=== PATIENT | male | born 1965 | race Caucasian/White ===

== ENCOUNTER → 2020-01-25 11:29 | Outpatient (CLI) | payer SELFPAY ==
--- NOTE | 2020-01-25 11:42 | DI.RAD.S_ITS ---
PROCEDURE: XR ANKLE LT MIN 3V INDICATIONS: rolled ankled 1 wk ago, increased pain/swelling, r/o fx TECHNIQUE: 3 views of the ankle were acquired. COMPARISON: None. FINDINGS: Bones: No fractures or dislocations. Ankle mortise is normally aligned. No suspicious bony lesions. Bipartite sesamoid bone. Tiny plantar calcaneal enthesophyte. Soft tissues: No tibiotalar joint effusion. Achilles tendon appears normal. IMPRESSION: No acute osseous abnormality. Dictated by: Tate See M.D. on 01/25/2020 at 12:22 Approved by: Tate See M.D. on 01/25/2020 at 12:24
== END ==
PROVIDERS: Referring Provider Physician Assistant; Visit Provider Physician Assistant
DX: S99.912A Unspecified injury of left ankle, initial encounter (principal); X58.XXXA Exposure to other specified factors, initial encounter
CPT/HCPCS: 73610

== ENCOUNTER 2025-05-06 09:07 | Inpatient (IN) | payer OTHER, SELFPAY ==
[2025-05-06] VITALS (77 sets, daily range): BP systolic 103–218; BP diastolic 54–115; PULSE 71–144; RESP 0–63; TEMP 36.8–37.2; O2SAT 82–100; BMI 41.3
--- NOTE | 2025-05-06 09:31 | DI.RAD.S_ITS ---
PROCEDURE: XR CHEST 1V INDICATIONS: Chest Pain TECHNIQUE: One view of the chest was acquired. COMPARISON: None. FINDINGS: Surgical changes and devices: None. Lungs and pleura: Lungs are clear. No pleural effusions or pneumothorax. Mediastinum: Mediastinal contours appear normal. Heart size is enlarged. Bones and chest wall: No suspicious bony lesions. Overlying soft tissues appear unremarkable. IMPRESSION: No acute cardiopulmonary abnormality is seen. Dictated by: Sky Lee M.D. on 05/06/2025 at 10:49 Approved by: Sky Lee M.D. on 05/06/2025 at 10:50
--- NOTE | 2025-05-06 09:31 | DI.RAD.S_ITS ---
PROCEDURE: XR KNEE LT 1TO2V INDICATIONS: knee pain TECHNIQUE: 2 views of the knee were acquired. COMPARISON: None. FINDINGS: Bones: No fractures or dislocations. No suspicious bony lesions. Tricompartmental joint space narrowing with associated osteophytosis. Subchondral cystic change without bony deformity in the medial tibiofemoral compartment. Soft tissues: Large joint effusion. No suspicious soft tissue calcifications. IMPRESSION: No acute bony abnormality with large joint effusion. Moderate to severe tricompartmental osteoarthritis. Kellgren-Abhinav Grade 2-3. Dictated by: Sky Lee M.D. on 05/06/2025 at 10:50 Approved by: Sky Lee M.D. on 05/06/2025 at 10:51
--- NOTE | 2025-05-06 09:31 | DI.RAD.S_ITS ---
PROCEDURE: XR KNEE RT 1TO2V INDICATIONS: knee pain TECHNIQUE: 2 views of the knee were acquired. COMPARISON: None. FINDINGS: Bones: No fractures or dislocations. No suspicious bony lesions. Tricompartmental joint space narrowing with associated osteophytosis. Soft tissues: Moderate joint effusion. No suspicious soft tissue calcifications. IMPRESSION: No acute bony abnormality with a moderate knee joint effusion. [id number] tricompartmental osteoarthritis. Kellgren-Abhinav Grade 2. Dictated by: Sky Lee M.D. on 05/06/2025 at 10:51 Approved by: Sky Lee M.D. on 05/06/2025 at 10:51
[2025-05-06 09:53] LABS: Add Manual Diff / Slide Review NO; Hematocrit 46.7 % (41-53); Hemoglobin 15.9 g/dL (13.5-17.5); Lymphocytes Absolute Auto 1100 /uL (1100-4500); Mean Corpuscular HGB Conc 34.2 % (30-36); Mean Corpuscular Hemoglobin 33.7 PG (26-34); Mean Corpuscular Volume 98.5 fL (80-100); Platelet Count 72 X10^3/uL (150-400)
[2025-05-06 09:57] LABS: INR 1.1 (0.9-1.3); Prothrombin Time 12.9 SECONDS (9.4-12.5)
[2025-05-06 10:00] LABS: PTT Partial Thromboplastin Tim 33 SECONDS (25.1-36.5)
--- NOTE | 2025-05-06 10:00 | PC.NURSE ---
Pt's HR between 130-145. pt denies feeling short of breath, denies CP or dizziness.
--- NOTE | 2025-05-06 10:03 | EKG_ITS ---
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
[2025-05-06 10:04] LABS: Alanine Aminotransferase 68 IU/L (<50); Albumin 4.5 g/dL (3.5-5.0); Albumin Globulin Ratio 1.3 (1.0-2.8); Alkaline Phosphatase 108 U/L (38-126); Blood Urea Nitrogen 9 mg/dL (9-20); Calcium 9.1 mg/dL (8.4-10.2); Carbon Dioxide 22 mmol/L (22-32); Chloride 105 mmol/L (98-107); Creatine Kinase 402 U/L (55-170); Estimated Glomerular Filt Rate > 60 mL/min (>60); Globulin 3.6 g/dL (1.7-4.1); Glucose 104 mg/dL (70-99); HEMOLYSIS < 15 (0-50); Lipase 74 U/L (23-300); Magnesium 1.6 mg/dL (1.6-2.3); Potassium 4.2 mmol/L (3.4-5.1); Sodium 140 mmol/L (137-145); Total Protein 8.1 g/dL (6.3-8.2)
[2025-05-06] MEDS: SODIUM CHLORIDE 0.9% 1,000 ML 1000 ML IV ×2 (10:07)
[2025-05-06 10:15] LABS: NT-proBNP (BNP-Adult 18+) 215 pg/mL (<125); Troponin I 0.013 ng/mL (0.01-0.034)
--- NOTE | 2025-05-06 10:15 | PC.NURSE ---
provider made aware of patients HR, CC, and symptoms
[2025-05-06] MEDS: METOPROLOL TARTRATE 5 MG/5 ML INJ IV ×2 (10:39→11:08)
[2025-05-06] MEDS: SUCCINYLCHOLINE 200 MG/10 ML VIAL 150 MG IV (10:41)
[2025-05-06 11:33] LABS: Ethanol (ETOH) 188 mg/dL (<10)
[2025-05-06 14:13] LABS: Appearance Urine UA CLEAR; Bilirubin Urine UA NEGATIVE (NEGATIVE); Color Urine UA YELLOW; Glucose Urine UA NEGATIVE (Negative); Ketones Urine UA NEGATIVE (NEGATIVE); Leukocyte Esterase Urine UA NEGATIVE (NEGATIVE); Nitrite Urine UA NEGATIVE (Negative); Occult Blood Urine UA TRACE-INTACT (Negative); Protein Urine UA NEGATIVE (Negative); Specific Gravity Urine UA <=1.005 (1.000-1.035); Urobilinogen Urine UA 0.2 E.U./dL (0.2); pH Urine UA 6.0 (4.5-8.0)
[2025-05-06 14:15] LABS: Ur Creatinine Normal (Normal); Ur Specific Gravity Normal (Normal); Urine MDMA Negative (Negative); Urine Methamphetamines Negative (Negative); Urine THC Negative (Negative); Urine Tricyclic Antidepressant Negative (Negative); Urine pH Normal (Normal)
[2025-05-06 14:21] LABS: Culture Indicated Urine Cult Not Indicated
[2025-05-06] MEDS: THIAMINE 500 MG in SODIUM CHLORIDE 0.9% 100 ML 420 MG IV (16:40)
[2025-05-06] MEDS: SODIUM CHLORIDE 0.9% 1,000 ML 100 ML IV (17:03)
[2025-05-06] MEDS: dexmedeTOMIDine in 0.9 % NaCL 400 MCG/100 ML PLAST..BAG 6.917 MCG IV (17:40)
[2025-05-06] MEDS: ONDANSETRON 4 MG/2 ML INJ IV (17:43)
--- NOTE | 2025-05-06 18:02 | CM.IDA ---
Addendum entered by Diana Pat 05/06/25 18:35: Patient also presents with positive toxicology with BAL of 188 upon presentation to ED, there may be additional concern for ETOH withdrawals. JACKSON Palomo Original Note: Initial DCP Assessment Note/ED AUDIOLOGY TECHNICIAN Note Patient is 60 y/o male who present to the ED due to concern for several health concerns including tachycardia, difficulty ambulating, and abdominal issues. Patient does not have a PCP and does not have insurance. This AUDIOLOGY TECHNICIAN assisted in signing patient up for state Medicaid insurance and faxed the application to [employer]. AUDIOLOGY TECHNICIAN with [facility] [employer] Octaviano Muñoz regarding patient and it is reported that Octaviano is trying to assist patient and connect him services through [facility]. It is reported that patient is living in his vehicle on [address], patient was recently evicted due to inability to work due to health issues. AUDIOLOGY TECHNICIAN enters room to meet with patient. Patient presents as A/Ox4, patient endorses he resides in his truck on [address] and stays by the park so he can utilize their bathroom, patient endorses that he showers at his tenriism. Patient has support from friend Emerald (Ph. # [phone]). Emerald provided patient with information to sign up for insurance but he was unable to do so independently. Patient states he just got a FWW and can typically ambulate 5-10 steps to the bathroom prior to getting FWW, patient endorses he manages most ADLs independently. Patient is interested in seeking sustainable prison and housing. Patient endorses he has children but he is estranged but them, he states his son resides in [place]. Patient states he is open to SNF rehab if it is recommended. AUDIOLOGY TECHNICIAN to provide patient with basic need and housing resources, [facility] [employer] and [facility] to follow up with patient. AUDIOLOGY TECHNICIAN informs Octaviano Muñoz of patient's admission to the hospital. patient to be admitted due to concern for Afib RVR. Plan: DCP to f/u with plan of care, patient would benefit from established PCP for outpatient f/u and support from [facility]FC to seek housing. JACKSON Palomo Discharge Planning/Care Management CM Discharge Assessment Start: 05/06/25 15:18 Freq: Status: Active Protocol: Document 05/06/25 16:42 LN (Rec: 05/06/25 16:52 LN [id number]) Discharge Planning Assessment Assigned Discharge JACKSON Ortiz Copy Center Operator Provider No PCP at this time Insurance Comment AUDIOLOGY TECHNICIAN submitted application for Medicaid application today Advance Directives? No Advance Directives No on File History Provided By Patient Has Patient been No admitted in last 30 days? Prior Living Homeless Arrangements Comment Patient is residing in his truck Household Members none Type of Drives own vehicle transporation used prior to admit Independent with ADL Yes 's Is patient alert and Yes oriented? DME Already Rented / FWW / Walker Owned Comment Patient is open to SNF rehab if it is recommended.
--- NOTE | 2025-05-06 18:21 | PC.NURSE ---
pt with complete linen change for bed. Pt with noticeabkle tremors, photosensitive and agitated,. Pt stating he is having a headache and feels worse than he did when he first arrived
--- NOTE | 2025-05-06 18:44 | ED.ABDPAIN ---
HPI - Abdominal Pain General Chief Complaint: Abdominal Pain Stated Complaint: can't walk . Time Seen by Provider: 05/06/25 10:17 Source: patient Mode of arrival: other History of Present Illness HPI narrative: This 60 yo male who is on the [address] homeless and lives out of car, presents with abdominal pain and bilateral knee pain after fall and rapid heartbeat. Slightly short of breath. Denies known history of a-fib. Claims drinks beer every other day, Family history negative Patient does not smoke currently. Related Data Home Medications ?Medication ?Instructions ?Recorded ?Confirmed No Known Home Medications 01/25/20 01/25/20 Allergies Allergy/AdvReac Type Severity Reaction Status Date / Time No Known Drug Allergies Allergy Unverified 05/06/25 09:25 Review of Systems Review of Systems ROS Unobtainable: All systems reviewed & are unremarkable except as noted in HPI and below Constitutional Comments: Malaise secondary to abdominal pain and shortness of breath Eyes Eyes: Reports system reviewed and no additional complaints, except as documented Cardiovascular Comments: Rapid irregularly irregular rhythm Respiratory Comments: short of breath slightly. no history of asthma. Gastrointestinal Comments: Epigastric pain , nausea Musculoskeletal Comments: Bilaterally tender anterior knees , slightly guarded ROM, no clear drawer sign.NROM of ankles and feet Neurologic Comments: Oriented times 3, slight trouble focusing. Patient History Medical History (Updated 05/06/25 @ 18:43 by Rose Loyola MD) Left ankle injury Social History household members: none Smoking Status: Former smoker Exam Initial Vital Signs Initial Vital Signs: Vital Signs Temperature 98.2 F 05/06/25 09:25 Pulse Rate 144 H 05/06/25 09:25 Respiratory Rate 22 05/06/25 09:25 Blood Pressure 176/100 H 05/06/25 09:25 Pulse Oximetry 93 05/06/25 09:25 Oxygen Delivery Method Room Air 05/06/25 09:25 Const General: cooperative and other (Slightly disheveled obese male who is slightly anxious and tachypneic ) HENMT Head: atraumatic Mouth: oral mucosae normal and tongue normal Eyes Pupils: PERRL EOM: EOM intact bilaterally Neck Neck: full ROM Chest Chest: normal inspection of the chest Resp Other: slight tachypnea, no rales or wheezes. Cardio Rate: tachycardic Rhythm: abnormal rhythm irregularly irregular GI Inspection: normal to inspection Palpation: soft Back/Spine/Pelvis Back: normal to inspection Neuro General: patient alert Cranial Nerves: CN's II-XI intact bilaterally Extrem Other: No marked tremulousness. Psych Appearance: other (anxious) Scores CHADS-VASc Congestive heart failure: yes Hypertension: yes Age 75 years or older: no Diabetes mellitus: no Stroke, TIA, or TE: no Vascular disease: no Age 65 to 74 years: no Sex category (female): Male CHADS-VASc Score: 2 HEART Score Heart Score history: Slightly Suspicious Heart Score EKG: Significant ST depression Heart Score Age: 45-64 years old Heart Score risk factors: 1-2 risk factors Heart Score troponin: < or = to normal limit Heart Score Total: 4 Course Orders Ordered: ED Orders 05/06/25 10:57 Consult to GREEN BUILDING ARCHITECT - Manager New Product Stat 05/06/25 11:10 Ethanol (ETOH) Stat 05/06/25 13:45 Urinalysis and Microscopic Stat Urine Drug Screen, Rapid Stat Acetaminophen (Acetaminophen 325 Mg Tablet) 650 mg PO Q6H PRN PRN Reason: Fever/Mild Pain (1-3) Apixaban (Apixaban 5 Mg Tablet) 5 mg PO BID LEN Chlordiazepoxide HCl (Chlordiazepoxide 25 Mg Capsule) 100 mg PO Q6H LEN Last Admin: 05/06/25 18:30 Dose: 100 mg Documented By: PAULINE Diltiazem HCl 125 mg/ Sodium (Chloride) 125 mls @ 5 mls/hr IV TITRATE LEN; Protocol Last Titration: 05/06/25 13:45 Dose: 15 mg/hr, 15 mls/hr Documented By: Titration: 05/06/25 12:24 Dose: 10 mg/hr, 10 mls/hr Documented By: Admin: 05/06/25 12:07 Dose: 5 mg/hr, 5 mls/hr Documented By: TRISHA Sodium Chloride (Normal Saline 0.9%) 1,000 mls @ 100 mls/hr IV CONT LEN Last Admin: 05/06/25 17:03 Dose: 100 mls/hr Documented By: TRISHA dexmedeTOMIDine in 0.9 % NaCL (Precedex) 400 mcg in 100 mls @ 6.917 mls/hr IV PROTOCOL LEN; Protocol Last Admin: 05/06/25 17:40 Dose: 0.2 mcg/kg/hr, 6.917 mls/hr Documented By: TRISHA Thiamine HCl 500 mg/ Sodium (Chloride) 105 mls @ 420 mls/hr IV Q8H [facility] Stop: 05/09/25 15:59 Last Infusion: 05/06/25 17:00 Dose: Infused Documented By: Admin: 05/06/25 16:40 Dose: 420 mls/hr Documented By: TRISHA Lorazepam (Lorazepam 2 Mg/Ml Inj) 0 mg IV CIWAPRN PRN; Protocol PRN Reason: Alcohol Withdrawal Last Admin: 05/06/25 18:18 Dose: 2 mg Documented By: PAULINE Lorazepam (Lorazepam 1 Mg Tablet) 0 mg PO CIWAPRN PRN; Protocol PRN Reason: Alcohol Withdrawal Multivitamins (Multivitamin 1 Tablet) 1 tab PO DAILY [facility] Naloxone HCl (Naloxone 0.4 Mg/Ml Vial) 0.2 mg IV Q2MIN PRN PRN Reason: Opiate Reversal Ondansetron HCl (Ondansetron 4 Mg/2 Ml Inj) 4 mg IV Q6HR PRN PRN Reason: Nausea And Vomiting Last Admin: 05/06/25 17:43 Dose: 4 mg Documented By: TRISHA Oxycodone HCl (Oxycodone Ir 5 Mg Tablet) 5 mg PO Q3H PRN PRN Reason: Pain, Moderate (4-6) Pantoprazole Sodium (Pantoprazole Dr 40 Mg Tablet) 40 mg PO 0700 [facility] Phenobarbital (Phenobarbital 65 Mg/Ml Vial) 130 mg IV Q4H [facility] Stop: 05/09/25 21:59 Discontinued Medications Aspirin (Aspirin 81 Mg Chew Tab) 324 mg PO NOW ONE Stop: 05/06/25 09:32 Last Admin: 05/06/25 09:42 Dose: Not Given Documented By: PAULINE Diltiazem HCl (Diltiazem 25 Mg/5 Ml Sdv) 10 mg IV NOW ONE Stop: 05/06/25 11:21 Last Admin: 05/06/25 11:33 Dose: 10 mg Documented By: PAULINE Hydromorphone HCl (Hydromorphone Hcl 0.5 Mg/0.5 Ml Syringe) 0.5 mg IV NOW ONE Stop: 05/06/25 10:37 Last Admin: 05/06/25 12:22 Dose: 0.5 mg Documented By: TRISHA Sodium Chloride (Normal Saline 0.9%) 1,000 mls @ 1,000 mls/hr IV BOLUS ONE Stop: 05/06/25 10:30 Last Infusion: 05/06/25 10:45 Dose: Infused Documented By: Admin: 05/06/25 10:07 Dose: 1,000 mls/hr Documented By: PAULINE Sodium Chloride (Normal Saline 0.9%) 1,000 mls @ 1,000 mls/hr IV BOLUS ONE Stop: 05/06/25 10:33 Last Infusion: 05/06/25 10:45 Dose: Infused Documented By: Admin: 05/06/25 10:07 Dose: 1,000 mls/hr Documented By: PAULINE Metoprolol Tartrate (Metoprolol Tartrate 5 Mg/5 Ml Inj) 5 mg IV NOW ONE Stop: 05/06/25 10:37 Last Admin: 05/06/25 10:39 Dose: 5 mg Documented By: PAULINE Metoprolol Tartrate (Metoprolol Tartrate 5 Mg/5 Ml Inj) 5 mg IV NOW ONE Stop: 05/06/25 11:00 Last Admin: 05/06/25 11:08 Dose: 5 mg Documented By: PAULINE Ondansetron HCl (Ondansetron 4 Mg/2 Ml Inj) 4 mg IV NOW ONE Stop: 05/06/25 10:37 Last Admin: 05/06/25 12:35 Dose: Not Given Documented By: TRISHA Phenobarbital (Phenobarbital 65 Mg/Ml Vial) 65 mg IV Q6H LEN Stop: 05/09/25 15:59 Last Admin: 05/06/25 17:03 Dose: 65 mg Documented By: TRISHA Phenobarbital (Phenobarbital 65 Mg/Ml Vial) 260 mg IM STAT ONE Stop: 05/06/25 17:36 Phenobarbital (Phenobarbital 65 Mg/Ml Vial) 260 mg IV STAT ONE Stop: 05/06/25 18:34 Vital Signs Vital signs: Vital Signs - 8 hr 05/06/25 10:45 05/06/25 10:45 05/06/25 11:00 Pulse Rate 118 H Respiratory Rate 21 Blood Pressure 172/100 H 162/112 H Pulse Oximetry 98 05/06/25 11:00 05/06/25 11:16 05/06/25 11:16 Pulse Rate 108 H 110 H Respiratory Rate 16 20 Blood Pressure 178/112 H Pulse Oximetry 96 05/06/25 11:30 05/06/25 11:30 05/06/25 11:33 Pulse Rate 121 H 125 H Respiratory Rate 20 Blood Pressure 179/106 H 179/106 H Pulse Oximetry 92 05/06/25 11:46 05/06/25 11:46 05/06/25 12:00 Pulse Rate 116 H 112 H Respiratory Rate 28 H 19 Blood Pressure 140/77 Pulse Oximetry 97 05/06/25 12:01 05/06/25 12:01 05/06/25 12:15 Pulse Rate 108 H 104 H Respiratory Rate 20 18 Blood Pressure 160/98 H Pulse Oximetry 97 98 05/06/25 12:15 05/06/25 12:30 05/06/25 12:30 Pulse Rate 103 H Respiratory Rate 21 Blood Pressure 169/97 H 174/84 H Pulse Oximetry 98 05/06/25 12:45 05/06/25 12:45 05/06/25 13:00 Pulse Rate 102 H Respiratory Rate 18 Blood Pressure 177/85 H 180/96 H Pulse Oximetry 96 05/06/25 13:00 05/06/25 13:15 05/06/25 13:15 Pulse Rate 109 H 102 H Respiratory Rate 14 19 Blood Pressure 176/87 H Pulse Oximetry 97 98 05/06/25 14:00 05/06/25 14:30 05/06/25 15:01 Pulse Rate 109 H 96 H 102 H Respiratory Rate 18 18 26 H Blood Pressure Pulse Oximetry 95 95 96 05/06/25 15:01 Pulse Rate Respiratory Rate Blood Pressure 171/93 H Pulse Oximetry MDM - Abdominal Pain Differential Diagnosis Differential diagnosis: Likely other (rapid a-fib with RVR possibly caused by alcohol withdrawl as patient drinks beer every day. ) Condition is:: Resolving Chronic Condition is having:: Moderate exacerbation Lab Data Attestation: I reviewed the patient's lab results. 05/06/25 09:41 05/06/25 09:41 Labs: Lab Results 05/06/25 05/06/25 05/06/25 Range/Units 09:41 11:10 13:45 WBC 5.5 (4.5-11.0) X10^3/uL RBC 4.74 (4.5-5.9) X10^6/uL Hgb 15.9 (13.5-17.5) g/dL Hct 46.7 (41-53) % MCV 98.5 (80-100) fL MCH 33.7 (26-34) PG MCHC 34.2 (30-36) % RDW 15.3 H (11.6-14.8) % Plt Count 72 L (150-400) X10^3/uL Neut % (Auto) 59.9 (50-75) % Lymph % (Auto) 19.9 L (25-40) % [place] % (Auto) 16.0 H (3-14) % Eos % (Auto) 2.8 (2-4) % Baso % (Auto) 1.4 (0-2) % Neut # (Auto) 3300 (2635-4488) /uL Lymph # (Auto) 1100 (9340-9353) /uL [place] # (Auto) 900 (0-900) /uL Eos # (Auto) 200 (0-450) /uL Baso # (Auto) 100 (0-100) /uL PT 12.9 H (9.4-12.5) SECONDS INR 1.1 (0.9-1.3) APTT 33 (25.1-36.5) SECONDS Sodium 140 (137-145) mmol/L Potassium 4.2 (3.4-5.1) mmol/L Chloride 105 (98-107) mmol/L Carbon Dioxide 22 (22-32) mmol/L BUN 9 (9-20) mg/dL Creatinine 0.73 (0.66-1.25) mg/dL Estimated GFR > 60 (>60) mL/min BUN/Creatinine Ratio 12.3 (6-22) Glucose 104 H (70-99) mg/dL Calcium 9.1 (8.4-10.2) mg/dL Magnesium 1.6 (1.6-2.3) mg/dL Total Bilirubin 1.6 H (0.2-1.3) mg/dL AST 111 H (17-59) IU/L ALT 68 H (<50) IU/L Alkaline Phosphatase 108 (38-126) U/L Total Creatine Kinase 402 H (55-170) U/L Troponin I 0.013 (0.01-0.034) ng/mL NT-Pro-B Natriuret Pep 215 H (<125) pg/mL Total Protein 8.1 (6.3-8.2) g/dL Albumin 4.5 (3.5-5.0) g/dL Globulin 3.6 (1.7-4.1) g/dL Albumin/Globulin Ratio 1.3 (1.0-2.8) Lipase 74 (23-300) U/L Urine Color Yellow Urine Appearance Clear Urine pH 6.0 (4.5-8.0) Ur Specific [place] <=1.005 (1.000-1.035) Urine Protein Negative (Negative) Urine Glucose (UA) Negative (Negative) g/dL Urine Ketones Negative (NEGATIVE) Urine Occult Blood Trace-intact (Negative) Urine Nitrate Negative (Negative) Urine Bilirubin Negative (NEGATIVE) Urine Urobilinogen 0.2 (0.2) E.U./dL Ur Leukocyte Esterase Negative (NEGATIVE) Urine RBC 0-1/hpf (0-5/HPF) Urine WBC 0-1/hpf (0-5/HPF) Ur Squamous Epith Cells 0-1 /hpf (0-5/HPF) Urine Bacteria Occasional (0-1) (None) Ur Culture Indicated? Cult not indicated Vol Urine Centrifuged 10ml (spun) U Opiates 300ng/mL cut Negative (Negative) Ur Oxycodone Screen Negative (Negative) Urine Methadone Screen Negative (Negative) Ur Barbiturates Screen Negative (Negative) U Tricyclic Antidepress Negative (Negative) Ur Phencyclidine Scrn Negative (Negative) Ur Amphetamines Screen Negative (Negative) U Methamphetamines Scrn Negative (Negative) Ur MDMA Scrn (Ecstasy) Negative (Negative) U Benzodiazepines Scrn Negative (Negative) Urine Cocaine Screen Negative (Negative) U Marijuana (THC) Screen Negative (Negative) Urine Specific [place] (Normal) Ethyl Alcohol 188 H (<10) mg/dL Ur Creatinine (Normal) 05/06/ Range/Units 13:45 WBC (4.5-11.0) X10^3/uL RBC (4.5-5.9) X10^6/uL Hgb (13.5-17.5) g/dL Hct (41-53) % MCV (80-100) fL MCH (26-34) PG MCHC (30-36) % RDW (11.6-14.8) % Plt Count (150-400) X10^3/uL Neut % (Auto) (50-75) % Lymph % (Auto) (25-40) % [place] % (Auto) (3-14) % Eos % (Auto) (2-4) % Baso % (Auto) (0-2) % Neut # (Auto) (5850-7969) /uL Lymph # (Auto) (4414-9548) /uL [place] # (Auto) (0-900) /uL Eos # (Auto) (0-450) /uL Baso # (Auto) (0-100) /uL PT (9.4-12.5) SECONDS INR (0.9-1.3) APTT (25.1-36.5) SECONDS Sodium (137-145) mmol/L Potassium (3.4-5.1) mmol/L Chloride (98-107) mmol/L Carbon Dioxide (22-32) mmol/L BUN (9-20) mg/dL Creatinine (0.66-1.25) mg/dL Estimated GFR (>60) mL/min BUN/Creatinine Ratio (6-22) Glucose (70-99) mg/dL Calcium (8.4-10.2) mg/dL Magnesium (1.6-2.3) mg/dL Total Bilirubin (0.2-1.3) mg/dL AST (17-59) IU/L ALT (<50) IU/L Alkaline Phosphatase (38-126) U/L Total Creatine Kinase (55-170) U/L Troponin I (0.01-0.034) ng/mL NT-Pro-B Natriuret Pep (<125) pg/mL Total Protein (6.3-8.2) g/dL Albumin (3.5-5.0) g/dL Globulin (1.7-4.1) g/dL Albumin/Globulin Ratio (1.0-2.8) Lipase (23-300) U/L Urine Color Urine Appearance Urine pH Normal (4.5-8.0) Ur Specific [place] (1.000-1.035) Urine Protein (Negative) Urine Glucose (UA) (Negative) g/dL Urine Ketones (NEGATIVE) Urine Occult Blood (Negative) Urine Nitrate (Negative) Urine Bilirubin (NEGATIVE) Urine Urobilinogen (0.2) E.U./dL Ur Leukocyte Esterase (NEGATIVE) Urine RBC (0-5/HPF) Urine WBC (0-5/HPF) Ur Squamous Epith Cells (0-5/HPF) Urine Bacteria (None) Ur Culture Indicated? Vol Urine Centrifuged U Opiates 300ng/mL cut (Negative) Ur Oxycodone Screen (Negative) Urine Methadone Screen (Negative) Ur Barbiturates Screen (Negative) U Tricyclic Antidepress (Negative) Ur Phencyclidine Scrn (Negative) Ur Amphetamines Screen (Negative) U Methamphetamines Scrn (Negative) Ur MDMA Scrn (Ecstasy) (Negative) U Benzodiazepines Scrn (Negative) Urine Cocaine Screen (Negative) U Marijuana (THC) Screen (Negative) Urine Specific [place] Normal (Normal) Ethyl Alcohol (<10) mg/dL Ur Creatinine Normal (Normal) ECG Data Attestation: I personally reviewed and interpreted this ECG as follows: (a-fib [id number] R wave V1-V3) MDM Narrative Medical decision making narrative: this patient presents with epigastric pain and rapid a-fib which probably is stemming from the patient drinking daily and probably withdrawing . The withdrawl appears early as no flagrant tremulousness yet Did ask for an alcohol level.Alcohol was 188. The patient was given IV fluid initially which brought down rate slightly. He was given a dose of metoprolol with little change and finally given diltiazem and a drip. Initially consultation with Dr. Dan, hydrologic modeler suggested heparainizing patient after looking at Patrick score. Dr. Pleitez hospitalist was called to admit patient and accepted to unit as on drip. Dr. Dan will followpatient while in unit with Dr. Pleitez. Will probably require treatment for alcohol withdrawl Discharge Plan Departure Patient Disposition: Admitted As Inpatient Clinical Impression: Atrial fibrillation with RVR, Contusion of knee Admit Date/Time: 05/06/25 15:05 Admit Provider: Jorge Rebolledo
--- NOTE | 2025-05-06 18:49 | P.HP_ITS ---
History of Present Illness History of Present Illness Date Patient Seen: 05/06/25 Chief complaint: can't walk . Narrative: Chief complaint: Atrial fibrillation rapid ventricular response and severe acute alcohol withdrawal History of present illness: 05/06: 60-year-old male well known to this institution for recurrent alcohol withdrawal and severe oral withdrawal with delirium tremens presented with increasing pain tremors and palpitations. He was brought to the emergency room where he was found to be in atrial fibrillation with a rapid ventricular response, started on IV diltiazem and apixaban. Findings in the emergency department significant for EKG showing AFib with ventricular response blood alcohol of 188 Hemogram unremarkable except platelets of 72 Total bilirubin 1.6 AST 111 ALT 68 CK for O2 troponin within reference range BNP 2 1 5 Review of systems: Positive for bilateral knee leg pain after fall no fracture seen on x-ray of the and joint Chest palpitations shortness of breath and weakness Unable to eat solid food for months No fevers chills rigors Physical exam: A pleasant obese unkempt male Severely tremulous and anxious in obvious severe withdrawal HEENT poor dentition Heart sounds distant irregularly irregular rhythm Lungs sounds distant Abdomen benign Extremities 2+ edema swelling around knees For objective laboratory EKG and imaging please see the bottom of the note: Assessment and plan: Atrial fibrillation rapid ventricular response likely related to withdrawal and alcohol cardiotoxicity * Appreciate cardiology input with recommendations for diltiazem drip and apixaban CVA prophylaxis * Echocardiogram * Treat alcohol withdrawal Severe alcohol withdrawal with severe symptoms while still having measurable alcohol levels * We will need to be extremely aggressive in managing this historically patient has had severe withdrawal * Moderate dose phenobarbital 390 mg IV loading dose and 130 mg scheduled IV q.4 hours hold if patient not rousable * Scheduled Librium 100 mg p.o. q.6 hours * Precedex infusion titrate to RA SS score of -1 * CIWA symptom driven protocol * IV thiamine CVA prophylaxis covered with apixaban Code status: * Full code Disposition: * Admission inpatient to ICU for management * Anticipate 3 days to manage alcohol withdrawal and atrial fibrillation Time based billing: * 75 minutes were involved in the management of this patient including [id number] patient evaluation discussion with treatment team ER provider review of previous records objective findings and orders [facility], [facility] Medical History (Updated 05/06/25 @ 18:43 by Rose Loyola MD) Left ankle injury Social History household members: none Smoking Status: Former smoker Meds Home Medications and Allergies Home Medications ?Medication ?Instructions ?Recorded ?Confirmed ?Type No Known Home Medications 01/25/2001/05 History Allergies Allergy/AdvReac Type Severity Reaction Status Date / Time No Known Drug Allergies Allergy Unverified 05/06/25 09:25 Exam Vital Signs (past 8 hours): - 05/06/25 11:00 05/06/25 11:00 05/06/25 11:16 Pulse Rate 108 H Respiratory Rate 16 Blood Pressure 162/112 H 178/112 H Pulse Oximetry 96 05/06/25 11:16 05/06/25 11:30 05/06/25 11:30 Pulse Rate 110 H 121 H Respiratory Rate 20 20 Blood Pressure 179/106 H Pulse Oximetry 92 05/06/25 11:33 05/06/25 11:46 05/06/25 11:46 Pulse Rate 125 H 116 H Respiratory Rate 28 H Blood Pressure 179/106 H 140/77 Pulse Oximetry 05/06/25 12:00 05/06/25 12:01 05/06/25 12:01 Pulse Rate 112 H 108 H Respiratory Rate 19 20 Blood Pressure 160/98 H Pulse Oximetry 97 97 05/06/25 12:15 05/06/25 12:15 05/06/25 12:30 Pulse Rate 104 H Respiratory Rate 18 Blood Pressure 169/97 H 174/84 H Pulse Oximetry 98 05/06/25 12:30 05/06/25 12:45 05/06/25 12:45 Pulse Rate 103 H 102 H Respiratory Rate 21 18 Blood Pressure 177/85 H Pulse Oximetry 98 96 05/06/25 13:00 05/06/25 13:00 05/06/25 13:15 Pulse Rate 109 H Respiratory Rate 14 Blood Pressure 180/96 H 176/87 H Pulse Oximetry 97 05/06/25 13:15 05/06/25 14:00 05/06/25 14:30 Pulse Rate 102 H 109 H 96 H Respiratory Rate 19 18 18 Blood Pressure Pulse Oximetry 98 95 95 05/06/25 15:01 05/06/25 15:01 05/06/25 15:15 Pulse Rate 102 H Respiratory Rate 26 H Blood Pressure 171/93 H 175/81 H Pulse Oximetry 96 05/06/25 15:15 05/06/25 15:30 05/06/25 15:30 Pulse Rate 108 H 101 H Respiratory Rate 17 16 Blood Pressure 164/81 H Pulse Oximetry 97 96 05/06/25 15:45 05/06/25 15:45 05/06/25 16:00 Pulse Rate 105 H 103 H Respiratory Rate 30 H 26 H Blood Pressure 175/88 H Pulse Oximetry 98 97 05/06/25 16:01 05/06/25 16:01 05/06/25 16:15 Pulse Rate 103 H Respiratory Rate 35 H Blood Pressure 195/108 H 190/86 H Pulse Oximetry 97 05/06/25 16:15 05/06/25 16:30 05/06/25 16:30 Pulse Rate 97 H 105 H Respiratory Rate 20 16 Blood Pressure 177/90 H Pulse Oximetry 96 96 05/06/25 16:45 05/06/25 16:45 05/06/25 17:00 Pulse Rate 110 H Respiratory Rate 26 H Blood Pressure 182/88 H 170/92 H Pulse Oximetry 96 05/06/25 17:00 05/06/25 17:15 05/06/25 17:15 Pulse Rate 105 H 112 H Respiratory Rate 18 21 Blood Pressure 175/93 H Pulse Oximetry 96 96 05/06/25 17:30 05/06/25 17:56 05/06/25 17:56 Pulse Rate 119 H Respiratory Rate 63 H 17 Blood Pressure 171/82 H Pulse Oximetry 94 05/06/25 18:00 05/06/25 18:01 05/06/25 18:01 Pulse Rate 144 H 132 H Respiratory Rate 47 H 31 H Blood Pressure 165/85 H Pulse Oximetry 93 95 05/06/25 18:18 05/06/25 18:18 Pulse Rate 113 H Respiratory Rate 24 Blood Pressure 164/87 H Pulse Oximetry 95 Oxygen Delivery Method Room Air Objective Labs 05/06/25 09:41 05/06/25 09:41 Labs: Laboratory Results - last 24 hr 05/06/25 05/06/25 05/06/25 09:41 11:10 13:45 WBC 5.5 RBC 4.74 Hgb 15.9 Hct 46.7 MCV 98.5 MCH 33.7 MCHC 34.2 RDW 15.3 H Plt Count 72 L Neut % (Auto) 59.9 Lymph % (Auto) 19.9 L [place] % (Auto) 16.0 H Eos % (Auto) 2.8 Baso % (Auto) 1.4 Neut # (Auto) 3300 Lymph # (Auto) 1100 [place] # (Auto) 900 Eos # (Auto) 200 Baso # (Auto) 100 PT 12.9 H INR 1.1 APTT 33 Sodium 140 Potassium 4.2 Chloride 105 Carbon Dioxide 22 BUN 9 Creatinine 0.73 Estimated GFR > 60 BUN/Creatinine Ratio 12.3 Glucose 104 H Calcium 9.1 Magnesium 1.6 Total Bilirubin 1.6 H AST 111 H ALT 68 H Alkaline Phosphatase 108 Total Creatine Kinase 402 H Troponin I 0.013 NT-Pro-B Natriuret Pep 215 H Total Protein 8.1 Albumin 4.5 Globulin 3.6 Albumin/Globulin Ratio 1.3 Lipase 74 Urine Color Yellow Urine Appearance Clear Urine pH 6.0 Ur Specific [place] <=1.005 Urine Protein Negative Urine Glucose (UA) Negative Urine Ketones Negative Urine Occult Blood Trace-intact Urine Nitrate Negative Urine Bilirubin Negative Urine Urobilinogen 0.2 Ur Leukocyte Esterase Negative Urine RBC 0-1/hpf Urine WBC 0-1/hpf Ur Squamous Epith Cells 0-1 /hpf Urine Bacteria Occasional (0-1) Ur Culture Indicated? Cult not indicated Vol Urine Centrifuged 10ml (spun) U Opiates 300ng/mL cut Negative Ur Oxycodone Screen Negative Urine Methadone Screen Negative Ur Barbiturates Screen Negative U Tricyclic Antidepress Negative Ur Phencyclidine Scrn Negative Ur Amphetamines Screen Negative U Methamphetamines Scrn Negative Ur MDMA Scrn (Ecstasy) Negative U Benzodiazepines Scrn Negative Urine Cocaine Screen Negative U Marijuana (THC) Screen Negative Urine Specific [place] Ethyl Alcohol 188 H Ur Creatinine 05/06/25 13:45 WBC RBC Hgb Hct MCV MCH MCHC RDW Plt Count Neut % (Auto) Lymph % (Auto) [place] % (Auto) Eos % (Auto) Baso % (Auto) Neut # (Auto) Lymph # (Auto) [place] # (Auto) Eos # (Auto) Baso # (Auto) PT INR APTT Sodium Potassium Chloride Carbon Dioxide BUN Creatinine Estimated GFR BUN/Creatinine Ratio Glucose Calcium Magnesium Total Bilirubin AST ALT Alkaline Phosphatase Total Creatine Kinase Troponin I NT-Pro-B Natriuret Pep Total Protein Albumin Globulin Albumin/Globulin Ratio Lipase Urine Color Urine Appearance Urine pH Normal Ur Specific [place] Urine Protein Urine Glucose (UA) Urine Ketones Urine Occult Blood Urine Nitrate Urine Bilirubin Urine Urobilinogen Ur Leukocyte Esterase Urine RBC Urine WBC Ur Squamous Epith Cells Urine Bacteria Ur Culture Indicated? Vol Urine Centrifuged U Opiates 300ng/mL cut Ur Oxycodone Screen Urine Methadone Screen Ur Barbiturates Screen U Tricyclic Antidepress Ur Phencyclidine Scrn Ur Amphetamines Screen U Methamphetamines Scrn Ur MDMA Scrn (Ecstasy) U Benzodiazepines Scrn Urine Cocaine Screen U Marijuana (THC) Screen Urine Specific [place] Normal Ethyl Alcohol Ur Creatinine Normal Assessment & Plan Time-Based Coding :: [TOTAL MINUTES] spent with patient and on the chart (including review of chart, obtaining history, exam, reviewing outside data, placing orders, documenting exam and treatment plan, and counseling patient) on [DATE].
--- NOTE | 2025-05-06 18:56 | DI.ECHO.S_ITS ---
[facility]+ [facility] : : [address] : : [place] : : [id number] : : Phone: [phone] Echocardiogram Report + + :Name: JER MALAGON Study Date: 05/07/2025 Height: 72 in : :Hospital ReadingLocation: Weight: 300 lb: : Gender: Male BSA: 2.5 m2 : :: 1965 Age: 60 yrs BP: 96/56 mmHg: :Reason For Study: Cardiomegaly atrial fibrillation : :Ordering Physician: RK : :RASHAD Performed By: Gail King : :Referring: RASHAD BECKMAN : + + Interpretation Summary The patient was in atrial fibrillation with heart rates between 108-136 bpm during the exam. The study quality was technically difficult. The left ventricular cavity is small. The ejection fraction is estimated to be 40-45%. The right ventricle is normal size. Right ventricular systolic function is moderately reduced. No obvious valvular abnormalities. The IVC is dilated, but has some respiratory collapse suggesting high central venous pressure. Procedure: A two-dimensional transthoracic echocardiogram with color flow and Doppler was performed. The study was done portably. The study quality was technically difficult. There is no prior echocardiogram noted for this patient. The patient was in atrial fibrillation with heart rates between 108- 136 bpm during the exam. Left Ventricle: The left ventricular cavity is small. The ejection fraction is estimated to be 40-45%. Diastolic function could not be accurately assessed due to atrial fibrillation. Right Ventricle: The right ventricle is normal size. Right ventricular systolic function is moderately reduced. Atria: Both atria are normal in size. There is no Doppler evidence for an interatrial shunt. Mitral Valve: The mitral valve leaflets are slightly calcified. There is no mitral valve stenosis. There is no mitral regurgitation noted. Aortic Valve: The aortic valve opens well. The aortic valve is mildly calcified. There is no aortic valve stenosis. No aortic regurgitation is present. Tricuspid Valve: The tricuspid valve leaflets are thin and pliable. There is trace tricuspid regurgitation. Pulmonic Valve: The pulmonic valve is not well visualized. Great Vessels: The aortic root is normal size. The ascending aorta is at the upper limits of normal in size. The pulmonary is not well visualized. Inspiratory collapse cannot be assessed because of mechanical ventilation, thus CVP cannot be estimated.. The IVC is dilated, but has some respiratory collapse suggesting high central venous pressure. Pericardium/ Pleura There is no pericardial effusion. There is an anterior echo-free space consistent with a fat pad. There is no pleural effusion. MMode/2D Measurements & Calculations LVIDd: 3.8 cm LVOT diam: 2.4 cm LVIDs: 3.5 cm Ao root diam: 3.5 cm FS: 8.3 % asc Aorta Diam: 3.9 cm EPSS: 0.34 cm IVSd: 1.5 cm LVPWd: 1.6 cm LV pate. diameter/BSA (cm/m^2): 1.5 LV sys. diameter/BSA (cm/m^2): 1.4 LA A2 area: 24.7 cm2 RA long axis: 5.8 cm LA A4 area: 15.8 cm2 RA area: 17.8 cm2 LA length (vol): 6.7 cm RA vol: 46.4 ml LA vol: 49.0 ml RA : 18.3 ml/m2 LA vol index: 19.4 ml/m2 IVC diam: 3.5 cm TAPSE: 0.74 cm Doppler Measurements & Calculations Ao V2 max: 106.9 cm/sec LVOT Max Arjun: 92.0 cm/sec Ao V2 mean: 79.2 cm/sec LV V1 max P.5 mmHg Ao max P.6 mmHg LV V1 VTI: 12.5 cm Ao mean P.7 mmHg MARISA(I,D): 5.2 cm2 Ao V2 VTI: 11.3 cm MARISA(V,D): 4.0 cm2 sev ratio: 1.1 MARISA indexed to BSA (cm^2/m^2): 2.0 Med Peak E' Arjun: 4.1 cm/sec PA V2 max: 78.6 cm/sec Lat Peak E' Arjun: 7.7 cm/sec PA V2 mean: 47.4 cm/sec MVA(VTI): 3.3 cm2 PA mean P.0 mmHg MV V2 mean: 66.6 cm/sec SV(LVOT): 58.6 ml MV mean P.9 mmHg MV V2 VTI: 17.8 cm Reading Physician:04:38 PM
[2025-05-06] MEDS: ETOMIDATE 2 MG/ML 10 ML VIAL 30 MG IV ×2 (20:40→21:05)
--- NOTE | 2025-05-06 20:41 | DI.RAD.S_ITS ---
PROCEDURE: XR CHEST 1V INDICATIONS: post intubation TECHNIQUE: One view of the chest was acquired. COMPARISON: [facility], CR, XR CHEST 1V, 05/06/2025, 9:32. FINDINGS: Surgical changes and devices: Interval placement of endotracheal tube with tip approximately 5 cm above the level of the pat. Interval placement of enteric tube with tip within the abdomen. Lungs and pleura: Right lower lobe consolidation or atelectasis. No pleural effusion or pneumothorax. Mediastinum: Heart size enlarged. Bones and chest wall: No suspicious bony lesions. Overlying soft tissues appear unremarkable. IMPRESSION: Interval consolidation or atelectasis in the right lower lobe. Dictated by: Chago Delvalle M.D. on 05/06/2025 at 21:24 Approved by: Chago Delvalle M.D. on 05/06/2025 at 21:26
[2025-05-06] MEDS: ETOMIDATE 2 MG/ML 10 ML VIAL 10 MG IV (20:58)
[2025-05-06] MEDS: SUCCINYLCHOLINE 200 MG/10 ML VIAL 50 MG IV (20:58)
[2025-05-06] MEDS: ROCURONIUM 50 MG/5 ML INJ IV (21:06)
--- NOTE | 2025-05-06 21:20 | PM.PROC.1 ---
Procedures Date/Time Date of procedure: 05/06/25 Time of procedure: 21:20 Intubation Time out performed: Yes Sedative: etomidate (also propofol gtt running at 10mcg/k/min, increased to 75 for intubation. Hospitalist present, to coordinate sedation with ICU. ) Mg given: 30 Paralytic: rocuronium Mg given: 50 Laryngoscope: fiber optic video scope ET tube size: 7.5 ET tube uncuffed: No Tube secured depth (cm): 23 Tube secured location: teeth Tube placement confirmation: visualized tube passing through cords, equal breath sounds bilaterally and confirmation by capnometry Patient tolerated procedure: well and no complications Intubation complications: none Additional comments: Prior failed intubation attempt. Easy mask ventilation, SaO2 mid 90's upon arrival and throughout. DL x 1 with Glidescope. 7.5ETT visuallized through cords. + capnography. My read of CXR: tip of ETT safely above pat. Rad review pending.
--- NOTE | 2025-05-06 21:30 | PC.NURSE ---
175 ml urine returned
--- NOTE | 2025-05-06 21:38 | PC.NURSE ---
pt moved to Rm 2 for intubation pt not able to protect airway effectively. pt medicated as ordered at [address] Chadwick at 2041 unsuccessfully, pt breathing assisted per ambu bag, pt remedicated but continue to have difficulty with inserting ET tube anesthesia Dr Sifuentes called and to the ED @ 2099 pt remedicated and intubated with a 7.5 ET tube @ 2105 and secured at at the teeth, OG inserted, PCXR done and tube placement confirmed per Dr Sifuentes at 2114
--- NOTE | 2025-05-06 21:51 | PC.NURSE ---
excoriated area to groin noted and documented with pictures uploaded in chart Dr Rebolledo in room and shown the area
--- NOTE | 2025-05-06 22:27 | PC.NURSE ---
Hospitalist stopped by, pt was sitting on the end of the bed, had pulled his cardiac leads off. Pt assisted back into bed, moved to room 2 for additional treatment
[2025-05-06 22:32] LABS: Allen Test for ABG Passed? Positive; Blood Gas Collection Site Right Radial; Blood Gas Mode Assist Cont Ventilat; Delivery System Adult Ventilator; HCO3 ABG 23 mmol/L (23-27); Oxygen Saturation ABG 96 % (95-100); PCO2 ABG 42.0 mmHg (35-45); PEEP 5; PO2 ABG 86 mmHg (80-100); TCO2 ABG 22 mmol/L (23-27)
--- NOTE | 2025-05-06 22:50 | P.TELICUCN_ITS ---
History of Present Illness Consult details IF CAMERA ACTIVATED, patient seen via real-time interactive audiovisual communication: Camera activated Chief complaint: can't walk . Reason for consult: acute encephalopathy, respiratory failure Consent obtained for tele-rod filler care: Yes Patient Location: ICU Provider location (State): [place] Other participants/roles: bedside rn, RT Narrative: 60-year-old male with past medical history of alcohol abuse to the emergency department were complaints of pain Lateral knees reportedly after falling. Patients are currently unable to provide history, information obtained from chart review conversation with admitted physician. Patient was noted to be tremulous and tachycardic and atrial fibrillation with rapid ventricular response. He was started on phenobarbital for concerns of possible alcohol or drug given prior history of admissions for this similar problem period despite this the patient continued to be agitated needing intuition an invasive mechanical ventilator support. PENDING SALE TO [facility] Medical History (Updated 05/06/25 @ 22:54 by Spencer Godoy MD) Left ankle injury Social History household members: none Smoking Status: Former smoker Current Medications Current Medications Medications: Home Medications No Known Home Medications 01/25/20 [History Confirmed 01/25/20] Visit Medications (administered) Generic Name Dose Route Start Last Admin Trade Name Freq PRN Reason Stop Dose Admin Chlordiazepoxide HCl 100 mg 05/06/25 18:00 05/06/25 18:30 Chlordiazepoxide 25 Mg Capsule PO 100 mg Q6H LEN Administration Diltiazem HCl 125 mg/ Sodium 125 mls @ 5 mls/hr 05/06/25 11:30 05/06/25 22:11 Chloride IV 5 mg/hr TITRATE LEN 5 mls/hr Protocol Titration 5 MG/HR Sodium Chloride 1,000 mls @ 100 mls/hr 05/06/25 16:00 05/06/25 17:03 Normal Saline 0.9% IV 100 mls/hr CONT LEN Administration dexmedeTOMIDine in 0.9 % NaCL 400 mcg in 100 mls @ 6.917 mls/hr 05/06/25 16:00 05/06/25 17:40 Precedex IV 0.2 mcg/kg/hr PROTOCOL LEN 6.917 mls/hr Protocol Administration 0.2 MCG/KG/HR Thiamine HCl 500 mg/ Sodium 105 mls @ 420 mls/hr 05/06/25 16:00 05/06/25 17:00 Chloride IV 05/09/25 15:59 Infused Q8H LEN Infusion Propofol 1,000 mg in 100 mls @ 4.15 mls/hr 05/06/25 20:45 05/06/25 21:05 Diprivan IV 75 mcg/kg/min TITRATE LEN 62.256 mls/hr Protocol Titration 5 MCG/KG/MIN Lorazepam 0 mg 05/06/25 15:51 05/06/25 18:18 Lorazepam 2 Mg/Ml Inj IV 2 mg [id number] PRN Administration Alcohol Withdrawal Protocol Ondansetron HCl 4 mg 05/06/25 15:51 05/06/25 17:43 Ondansetron 4 Mg/2 Ml Inj IV 4 mg Q6HR PRN Administration Nausea And Vomiting Succinylcholine Chloride 50 mg 05/06/25 21:00 05/06/25 20:58 Succinylcholine 200 Mg/10 Ml Vial IV 50 mg STAT LEN Administration Review of Systems Review of Systems Narrative: unable to obtain Exam Vital Signs (past 8 hours): - 05/06/25 15:01 05/06/25 15:01 05/06/25 15:15 Temperature Pulse Rate 102 H Respiratory Rate 26 H Blood Pressure 171/93 H 175/81 H Pulse Oximetry 96 05/06/25 15:15 05/06/25 15:30 05/06/25 15:30 Temperature Pulse Rate 108 H 101 H Respiratory Rate 17 16 Blood Pressure 164/81 H Pulse Oximetry 97 96 05/06/25 15:45 05/06/25 15:45 05/06/25 16:00 Temperature Pulse Rate 105 H 103 H Respiratory Rate 30 H 26 H Blood Pressure 175/88 H Pulse Oximetry 98 97 05/06/25 16:01 05/06/25 16:01 05/06/25 16:15 Temperature Pulse Rate 103 H Respiratory Rate 35 H Blood Pressure 195/108 H 190/86 H Pulse Oximetry 97 05/06/25 16:15 05/06/25 16:30 05/06/25 16:30 Temperature Pulse Rate 97 H 105 H Respiratory Rate 20 16 Blood Pressure 177/90 H Pulse Oximetry 96 96 05/06/25 16:45 05/06/25 16:45 05/06/25 17:00 Temperature Pulse Rate 110 H Respiratory Rate 26 H Blood Pressure 182/88 H 170/92 H Pulse Oximetry 96 05/06/25 17:00 05/06/25 17:15 05/06/25 17:15 Temperature Pulse Rate 105 H 112 H Respiratory Rate 18 21 Blood Pressure 175/93 H Pulse Oximetry 96 96 05/06/25 17:30 05/06/25 17:56 05/06/25 17:56 Temperature Pulse Rate 119 H Respiratory Rate 63 H 17 Blood Pressure 171/82 H Pulse Oximetry 94 05/06/25 18:00 05/06/25 18:01 05/06/25 18:01 Temperature Pulse Rate 144 H 132 H Respiratory Rate 47 H 31 H Blood Pressure 165/85 H Pulse Oximetry 93 95 05/06/25 18:18 05/06/25 18:18 05/06/25 18:30 Temperature Pulse Rate 113 H 102 H Respiratory Rate 24 24 Blood Pressure 164/87 H Pulse Oximetry 95 95 05/06/25 18:30 05/06/25 18:45 05/06/25 18:45 Temperature Pulse Rate 92 H Respiratory Rate 21 Blood Pressure 156/65 H 182/98 H Pulse Oximetry 95 05/06/25 19:00 05/06/25 19:00 05/06/25 19:15 Temperature Pulse Rate 84 Respiratory Rate 22 Blood Pressure 137/69 145/65 H Pulse Oximetry 97 05/06/25 19:15 05/06/25 19:30 05/06/25 19:30 Temperature Pulse Rate 85 82 Respiratory Rate 22 19 Blood Pressure 130/63 Pulse Oximetry 95 95 05/06/25 19:45 05/06/25 19:45 05/06/25 20:00 Temperature Pulse Rate 84 94 H Respiratory Rate 21 28 H Blood Pressure 144/68 H Pulse Oximetry 95 97 05/06/25 20:01 05/06/25 20:01 05/06/25 20:16 Temperature Pulse Rate 113 H Respiratory Rate 27 H Blood Pressure 134/67 118/57 L Pulse Oximetry 97 05/06/25 20:16 05/06/25 20:34 05/06/25 20:39 Temperature Pulse Rate 103 H 77 Respiratory Rate Blood Pressure 136/71 Pulse Oximetry 94 93 05/06/25 20:39 05/06/25 20:42 05/06/25 20:42 Temperature Pulse Rate 81 82 Respiratory Rate 21 20 Blood Pressure 147/67 H Pulse Oximetry 94 97 05/06/25 20:46 05/06/25 20:46 05/06/25 20:48 Temperature Pulse Rate 118 H 117 H Respiratory Rate 28 H 9 L Blood Pressure 200/105 H Pulse Oximetry 100 98 05/06/25 20:48 05/06/25 20:52 05/06/25 20:52 Temperature Pulse Rate 118 H Respiratory Rate 20 Blood Pressure 187/104 H 218/101 H Pulse Oximetry 98 05/06/25 20:54 05/06/25 20:54 05/06/25 20:57 Temperature Pulse Rate 102 H Respiratory Rate 20 Blood Pressure 181/86 H 191/90 H Pulse Oximetry 99 05/06/25 20:57 05/06/25 21:00 05/06/25 21:00 Temperature Pulse Rate 109 H 106 H Respiratory Rate 19 26 H Blood Pressure 188/89 H Pulse Oximetry 93 95 05/06/25 21:03 05/06/25 21:03 05/06/25 21:06 Temperature Pulse Rate 110 H Respiratory Rate 26 H Blood Pressure 193/84 H 176/79 H Pulse Oximetry 98 05/06/25 21:06 05/06/25 21:08 05/06/25 21:08 Temperature Pulse Rate 110 H 110 H Respiratory Rate 23 12 Blood Pressure 138/64 Pulse Oximetry 98 94 05/06/25 21:10 05/06/25 21:10 05/06/25 21:12 Temperature Pulse Rate 117 H 116 H Respiratory Rate 7 L 0 L Blood Pressure 162/77 H Pulse Oximetry 96 96 05/06/25 21:12 05/06/25 21:15 05/06/25 21:15 Temperature Pulse Rate 115 H Respiratory Rate 12 Blood Pressure 180/78 H 168/81 H Pulse Oximetry 97 05/06/25 21:18 05/06/25 21:18 05/06/25 21:21 Temperature Pulse Rate 110 H Respiratory Rate 12 Blood Pressure 172/79 H 165/77 H Pulse Oximetry 96 05/06/25 21:21 05/06/25 21:24 05/06/25 21:24 Temperature Pulse Rate 107 H 100 H Respiratory Rate 16 16 Blood Pressure 151/70 H Pulse Oximetry 96 99 05/06/25 21:27 05/06/25 21:27 05/06/25 21:30 Temperature Pulse Rate 97 H Respiratory Rate 17 Blood Pressure 153/70 H 154/79 H Pulse Oximetry 100 10/31/25 21:30 05/06/25 21:33 05/06/25 21:33 Temperature Pulse Rate 100 H 97 H Respiratory Rate 16 16 Blood Pressure 153/78 H Pulse Oximetry 100 99 05/06/25 21:35 05/06/25 21:35 05/06/25 21:39 Temperature Pulse Rate 94 H 90 Respiratory Rate 21 16 Blood Pressure 140/67 Pulse Oximetry 99 97 05/06/25 21:39 05/06/25 22:10 05/06/25 22:20 Temperature Pulse Rate 79 71 Respiratory Rate 18 Blood Pressure 142/71 H Pulse Oximetry 97 97 05/06/25 22:20 05/06/25 22:29 05/06/25 22:30 Temperature 99 F Pulse Rate 75 Respiratory Rate 18 Blood Pressure 108/69 108/69 Pulse Oximetry 98 Oxygen Delivery Method Room Air Narrative Exam Narrative: intubated and sedated on propofol Objective Imaging Chest x-ray: My impression: atelectasis. adequate placement of ETT and gastric tube. Labs 05/06/25 09:41 05/06/25 09:41 Labs: Laboratory Results - last 24 hr 05/06/25 05/06/25 05/06/25 09:41 11:10 13:45 WBC 5.5 RBC 4.74 Hgb 15.9 Hct 46.7 MCV 98.5 MCH 33.7 MCHC 34.2 RDW 15.3 H Plt Count 72 L Neut % (Auto) 59.9 Lymph % (Auto) 19.9 L [place] % (Auto) 16.0 H Eos % (Auto) 2.8 Baso % (Auto) 1.4 Neut # (Auto) 3300 Lymph # (Auto) 1100 [place] # (Auto) 900 Eos # (Auto) 200 Baso # (Auto) 100 PT 12.9 H INR 1.1 APTT 33 ABG Sample Site ABG pH ABG pCO2 ABG pO2 ABG HCO3 ABG Total CO2 ABG O2 Saturation ABG Base Excess Darci Test Respiration Rate O2 Delivery Device Mode of Support FiO2 % PEEP or CPAP Sodium 140 Potassium 4.2 Chloride 105 Carbon Dioxide 22 BUN 9 Creatinine 0.73 Estimated GFR > 60 BUN/Creatinine Ratio 12.3 Glucose 104 H POC Whole Bld Glucose Calcium 9.1 Magnesium 1.6 Total Bilirubin 1.6 H AST 111 H ALT 68 H Alkaline Phosphatase 108 Total Creatine Kinase 402 H Troponin I 0.013 NT-Pro-B Natriuret Pep 215 H Total Protein 8.1 Albumin 4.5 Globulin 3.6 Albumin/Globulin Ratio 1.3 Lipase 74 Urine Color Yellow Urine Appearance Clear Urine pH 6.0 Ur Specific [place] <=1.005 Urine Protein Negative Urine Glucose (UA) Negative Urine Ketones Negative Urine Occult Blood Trace-intact Urine Nitrate Negative Urine Bilirubin Negative Urine Urobilinogen 0.2 Ur Leukocyte Esterase Negative Urine RBC 0-1/hpf Urine WBC 0-1/hpf Ur Squamous Epith Cells 0-1 /hpf Urine Bacteria Occasional (0-1) Ur Culture Indicated? Cult not indicated Vol Urine Centrifuged 10ml (spun) U Opiates 300ng/mL cut Negative Ur Oxycodone Screen Negative Urine Methadone Screen Negative Ur Barbiturates Screen Negative U Tricyclic Antidepress Negative Ur Phencyclidine Scrn Negative Ur Amphetamines Screen Negative U Methamphetamines Scrn Negative Ur MDMA Scrn (Ecstasy) Negative U Benzodiazepines Scrn Negative Urine Cocaine Screen Negative U Marijuana (THC) Screen Negative Urine Specific [place] Ethyl Alcohol 188 H Ur Creatinine 05/06/25 05/06/25 05/06/25 13:45 21:57 22:28 WBC RBC Hgb Hct MCV MCH MCHC RDW Plt Count Neut % (Auto) Lymph % (Auto) [place] % (Auto) Eos % (Auto) Baso % (Auto) Neut # (Auto) Lymph # (Auto) [place] # (Auto) Eos # (Auto) Baso # (Auto) PT INR APTT ABG Sample Site Right radial ABG pH 7.34 L ABG pCO2 42.0 ABG pO2 86 ABG HCO3 23 ABG Total CO2 22 L ABG O2 Saturation 96 ABG Base Excess -2.8 L Darci Test Positive Respiration Rate 18 O2 Delivery Device Adult ventilator Mode of Support Assist cont ventilat FiO2 % 50.0 % PEEP or CPAP 5 Sodium Potassium Chloride Carbon Dioxide BUN Creatinine Estimated GFR BUN/Creatinine Ratio Glucose POC Whole Bld Glucose 100 H Calcium Magnesium Total Bilirubin AST ALT Alkaline Phosphatase Total Creatine Kinase Troponin I NT-Pro-B Natriuret Pep Total Protein Albumin Globulin Albumin/Globulin Ratio Lipase Urine Color Urine Appearance Urine pH Normal Ur Specific [place] Urine Protein Urine Glucose (UA) Urine Ketones Urine Occult Blood Urine Nitrate Urine Bilirubin Urine Urobilinogen Ur Leukocyte Esterase Urine RBC Urine WBC Ur Squamous Epith Cells Urine Bacteria Ur Culture Indicated? Vol Urine Centrifuged U Opiates 300ng/mL cut Ur Oxycodone Screen Urine Methadone Screen Ur Barbiturates Screen U Tricyclic Antidepress Ur Phencyclidine Scrn Ur Amphetamines Screen U Methamphetamines Scrn Ur MDMA Scrn (Ecstasy) U Benzodiazepines Scrn Urine Cocaine Screen U Marijuana (THC) Screen Urine Specific [place] Normal Ethyl Alcohol Ur Creatinine Normal Assessment & Plan Assessment and plan (1) Acute encephalopathy: Status: Acute Plan: -monitor neurologica status -Thiamine, MVI. -Schedule Phenobarb -Daily SAT (2) Acute respiratory failure: Status: Acute Plan: -Mechanical Vent support with lung protective startegies. 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
[2025-05-06] MEDS: fentaNYL 1,000 MCG in DEXTROSE 5% IN WATER 230 ML 24.211 MCG IV (22:58)
[2025-05-07] VITALS (108 sets, daily range): BP systolic 82–175; BP diastolic 52–98; PULSE 75–145; RESP 7–18; TEMP 36.6–38.6; O2SAT 95–100
[2025-05-07] MEDS: CHLORHEXIDINE GLUCONATE 15 ML CUP PO ×4 (01:16→17:36)
[2025-05-07] MEDS: THIAMINE 500 MG in SODIUM CHLORIDE 0.9% 100 ML 420 MG IV (01:39)
[2025-05-07] MEDS: SODIUM CHLORIDE 0.9% 1,000 ML 100 ML IV ×2 (01:45→11:43)
[2025-05-07 04:39] LABS: MRSA (Nasal) PCR NOT DETECTED (Not Detect)
[2025-05-07 05:22] LABS: Add Manual Diff / Slide Review NO; Hematocrit 45.5 % (41-53); Hemoglobin 15.4 g/dL (13.5-17.5); Lymphocytes Absolute Auto 1500 /uL (1100-4500); Mean Corpuscular HGB Conc 33.8 % (30-36); Mean Corpuscular Hemoglobin 33.9 PG (26-34); Mean Corpuscular Volume 100.4 fL (80-100); Platelet Count 44 X10^3/uL (150-400)
[2025-05-07] MEDS: fentaNYL 1,000 MCG in DEXTROSE 5% IN WATER 230 ML 48.421 MCG IV (05:32)
[2025-05-07 05:35] LABS: Alanine Aminotransferase 57 IU/L (<50); Albumin 4.1 g/dL (3.5-5.0); Albumin Globulin Ratio 1.2 (1.0-2.8); Alkaline Phosphatase 85 U/L (38-126); Blood Urea Nitrogen 14 mg/dL (9-20); Calcium 8.4 mg/dL (8.4-10.2); Carbon Dioxide 21 mmol/L (22-32); Chloride 106 mmol/L (98-107); Estimated Glomerular Filt Rate > 60 mL/min (>60); Globulin 3.3 g/dL (1.7-4.1); Glucose 73 mg/dL (70-99); Potassium 4.9 mmol/L (3.4-5.1); Sodium 138 mmol/L (137-145); Total Protein 7.4 g/dL (6.3-8.2)
[2025-05-07 05:38] LABS: HEMOLYSIS 63 (0-50)
--- NOTE | 2025-05-07 06:46 | PC.NURSE ---
Lorazipam was given twice for high BP and HR. Not for CIWA.
--- NOTE | 2025-05-07 06:59 | PC.NURSE ---
Pt voided large incontinent amount in diaper. Bladder scanned after and it was >600. Will relay to dayshift
--- NOTE | 2025-05-07 07:59 | P.PN_ITS ---
Subjective Subjective Date Patient Seen: 05/07/25 Interval history: Chief complaint: Atrial fibrillation rapid ventricular response and severe acute alcohol withdrawal History of present illness: 05/06: 60-year-old male well known to this institution for recurrent alcohol withdrawal and severe oral withdrawal with delirium tremens presented with increasing pain tremors and palpitations. He was brought to the emergency room where he was found to be in atrial fibrillation with a rapid ventricular response, started on IV diltiazem and apixaban. Findings in the emergency department significant for EKG showing AFib with ventricular response blood alcohol of 188 Hemogram unremarkable except platelets of 72 Total bilirubin 1.6 AST 111 ALT 68 CK for O2 troponin within reference range BNP 2 1 5 Chest x-ray showed markedly enlarged cardiac silhouette and right lower lobe pleural effusion/infiltrate Emergency room course: Patient received 390 mg of IV phenobarbital several doses of 2 mg of lorazepam 100 mg of oral chlordiazepoxide and Precedex infusion with escalation. Despite administer these medications patient began with agitated delirium with hallucinosis set up and removed his lunchroom monitor and got out of the gurney standing at the edge resting against it. At this point it was clear that adequate treatment of his delirium tremens could not be accomplished with airway protection and management without intubation. Intubation was difficult anesthesia was consulted performed endotracheal intubation patient was started on propofol in e-ICU was consulted Review of systems: Patient is sedated Physical exam: Sedated obese unkempt male intubated Heart sounds distant irregularly irregular rhythm Lungs sounds coarse rhonchi throughout Abdomen benign Extremities 2+ edema swelling around knees For objective laboratory EKG and imaging please see the bottom of the note: Assessment and plan: Atrial fibrillation rapid ventricular response likely related to withdrawal and alcohol cardiotoxicity * Appreciate cardiology input with recommendations for diltiazem drip and apixaban CVA prophylaxis * Amiodarone per hospital superintendent management * Echocardiogram * Treat alcohol withdrawal Severe alcohol withdrawal with severe symptoms while still having measurable alcohol levels * We will need to be extremely aggressive in managing this historically patient has had severe withdrawal * Moderate dose phenobarbital 390 mg IV loading dose and 130 mg scheduled IV q.4 hours (hospital superintendent is managing) * Precedex infusion titrate to RA SS score of -4 * Propofol fentanyl and other infusions per hospital superintendent management * IV thiamine CVA prophylaxis covered with apixaban Code status: * Full code Disposition: * Admission inpatient to ICU for management * Anticipate 3 or more days to manage alcohol withdrawal and atrial fibrillation Time based billing: * 75 minutes were involved in the management of this patient including [id number] patient evaluation discussion with treatment team ER provider review of previous records objective findings and orders Exam Vital Signs (past 8 hours): - 05/07/25 00:00 05/07/25 00:00 05/07/25 00:15 Temperature Pulse Rate 76 Respiratory Rate 18 Blood Pressure 109/59 L 111/61 Pulse Oximetry 100 05/07/25 00:15 05/07/25 00:30 05/07/25 00:30 Temperature Pulse Rate 77 76 Respiratory Rate 18 7 L Blood Pressure 110/55 L Pulse Oximetry 100 100 05/07/25 00:45 05/07/25 00:45 05/07/25 00:55 Temperature 98.8 F Pulse Rate 77 Respiratory Rate 18 Blood Pressure 111/61 111/61 Pulse Oximetry 98 05/07/25 01:00 05/07/25 01:00 05/07/25 01:15 Temperature Pulse Rate 76 Respiratory Rate 16 Blood Pressure 108/58 L 114/63 Pulse Oximetry 98 05/07/25 01:15 05/07/25 01:30 05/07/25 01:30 Temperature Pulse Rate 75 79 Respiratory Rate 16 16 Blood Pressure 114/63 111/57 L Pulse Oximetry 99 100 05/07/25 01:45 05/07/25 01:45 05/07/25 02:00 Temperature Pulse Rate 79 83 Respiratory Rate 16 16 Blood Pressure 124/62 Pulse Oximetry 100 100 05/07/25 02:00 05/07/25 02:15 05/07/25 02:15 Temperature Pulse Rate 83 Respiratory Rate 16 Blood Pressure 127/72 136/67 Pulse Oximetry 100 05/07/25 02:30 05/07/25 02:30 05/07/25 02:45 Temperature Pulse Rate 81 Respiratory Rate 16 Blood Pressure 136/76 175/82 H Pulse Oximetry 100 05/07/25 02:45 05/07/25 03:00 05/07/25 03:00 Temperature Pulse Rate 91 H 92 H Respiratory Rate 16 16 Blood Pressure 143/71 H Pulse Oximetry 99 100 05/07/25 03:15 05/07/25 03:15 05/07/25 03:30 Temperature Pulse Rate 94 H 91 H Respiratory Rate 16 16 Blood Pressure 136/74 Pulse Oximetry 100 100 05/07/25 03:30 05/07/25 03:45 05/07/25 03:45 Temperature Pulse Rate 94 H Respiratory Rate 16 Blood Pressure 146/74 H 142/72 H Pulse Oximetry 100 05/07/25 04:00 05/07/25 04:00 05/07/25 04:30 Temperature Pulse Rate 102 H 104 H Respiratory Rate 16 16 Blood Pressure 146/73 H Pulse Oximetry 100 100 05/07/25 04:40 05/07/25 04:40 05/07/25 04:45 Temperature Pulse Rate 108 H 115 H Respiratory Rate 16 16 Blood Pressure 155/88 H Pulse Oximetry 98 97 05/07/25 04:45 05/07/25 05:00 05/07/25 05:00 Temperature 101.5 F H Pulse Rate 115 H Respiratory Rate 16 Blood Pressure 156/98 H 169/83 H Pulse Oximetry 98 05/07/25 05:15 05/07/25 05:15 05/07/25 05:30 Temperature Pulse Rate 112 H Respiratory Rate 16 Blood Pressure 154/74 H 139/76 Pulse Oximetry 99 05/07/25 05:30 05/07/25 05:45 05/07/25 05:45 Temperature Pulse Rate 118 H 114 H Respiratory Rate 16 16 Blood Pressure 117/63 Pulse Oximetry 99 99 05/07/25 06:00 05/07/25 06:00 05/07/25 06:15 Temperature Pulse Rate 117 H 112 H Respiratory Rate 16 16 Blood Pressure 109/65 Pulse Oximetry 99 99 05/07/25 06:15 05/07/25 06:23 05/07/25 06:30 Temperature 99.1 F Pulse Rate 111 H Respiratory Rate 16 Blood Pressure 115/68 Pulse Oximetry 100 05/07/25 06:30 05/07/25 06:45 05/07/25 06:45 Temperature Pulse Rate 110 H Respiratory Rate 16 Blood Pressure 120/63 117/71 Pulse Oximetry 99 05/07/25 07:00 05/07/25 07:00 05/07/25 07:15 Temperature Pulse Rate 110 H 112 H Respiratory Rate 16 16 Blood Pressure 117/68 Pulse Oximetry 99 99 05/07/25 07:15 05/07/25 07:30 05/07/25 07:30 Temperature 97.8 F Pulse Rate 122 H Respiratory Rate 16 Blood Pressure 115/62 Pulse Oximetry 98 Oxygen Delivery Method Mechanical Ventilation Objective Labs 05/07/25 04:17 05/07/25 04:17 Labs: Laboratory Results - last 24 hr 05/06/25 05/06/25 05/06/25 09:41 11:10 13:45 WBC 5.5 RBC 4.74 Hgb 15.9 Hct 46.7 MCV 98.5 MCH 33.7 MCHC 34.2 RDW 15.3 H Plt Count 72 L Neut % (Auto) 59.9 Lymph % (Auto) 19.9 L [place] % (Auto) 16.0 H Eos % (Auto) 2.8 Baso % (Auto) 1.4 Neut # (Auto) 3300 Lymph # (Auto) 1100 [place] # (Auto) 900 Eos # (Auto) 200 Baso # (Auto) 100 PT 12.9 H INR 1.1 APTT 33 ABG Sample Site ABG pH ABG pCO2 ABG pO2 ABG HCO3 ABG Total CO2 ABG O2 Saturation ABG Base Excess Darci Test Respiration Rate O2 Delivery Device Mode of Support FiO2 % PEEP or CPAP Sodium 140 Potassium 4.2 Chloride 105 Carbon Dioxide 22 BUN 9 Creatinine 0.73 Estimated GFR > 60 BUN/Creatinine Ratio 12.3 Glucose 104 H POC Whole Bld Glucose Calcium 9.1 Magnesium 1.6 Total Bilirubin 1.6 H AST 111 H ALT 68 H Alkaline Phosphatase 108 Total Creatine Kinase 402 H Troponin I 0.013 NT-Pro-B Natriuret Pep 215 H Total Protein 8.1 Albumin 4.5 Globulin 3.6 Albumin/Globulin Ratio 1.3 Lipase 74 Urine Color Yellow Urine Appearance Clear Urine pH 6.0 Ur Specific [place] <=1.005 Urine Protein Negative Urine Glucose (UA) Negative Urine Ketones Negative Urine Occult Blood Trace-intact Urine Nitrate Negative Urine Bilirubin Negative Urine Urobilinogen 0.2 Ur Leukocyte Esterase Negative Urine RBC 0-1/hpf Urine WBC 0-1/hpf Ur Squamous Epith Cells 0-1 /hpf Urine Bacteria Occasional (0-1) Ur Culture Indicated? Cult not indicated Vol Urine Centrifuged 10ml (spun) Nasal Screen MRSA (PCR) U Opiates 300ng/mL cut Negative Ur Oxycodone Screen Negative Urine Methadone Screen Negative Ur Barbiturates Screen Negative U Tricyclic Antidepress Negative Ur Phencyclidine Scrn Negative Ur Amphetamines Screen Negative U Methamphetamines Scrn Negative Ur MDMA Scrn (Ecstasy) Negative U Benzodiazepines Scrn Negative Urine Cocaine Screen Negative U Marijuana (THC) Screen Negative Urine Specific [place] Ethyl Alcohol 188 H Ur Creatinine 05/06/25 05/06/25 05/06/25 13:45 21:30 21:57 WBC RBC Hgb Hct MCV MCH MCHC RDW Plt Count Neut % (Auto) Lymph % (Auto) [place] % (Auto) Eos % (Auto) Baso % (Auto) Neut # (Auto) Lymph # (Auto) [place] # (Auto) Eos # (Auto) Baso # (Auto) PT INR APTT ABG Sample Site ABG pH ABG pCO2 ABG pO2 ABG HCO3 ABG Total CO2 ABG O2 Saturation ABG Base Excess Darci Test Respiration Rate O2 Delivery Device Mode of Support FiO2 % PEEP or CPAP Sodium Potassium Chloride Carbon Dioxide BUN Creatinine Estimated GFR BUN/Creatinine Ratio Glucose POC Whole Bld Glucose 100 H Calcium Magnesium Total Bilirubin AST ALT Alkaline Phosphatase Total Creatine Kinase Troponin I NT-Pro-B Natriuret Pep Total Protein Albumin Globulin Albumin/Globulin Ratio Lipase Urine Color Urine Appearance Urine pH Normal Ur Specific [place] Urine Protein Urine Glucose (UA) Urine Ketones Urine Occult Blood Urine Nitrate Urine Bilirubin Urine Urobilinogen Ur Leukocyte Esterase Urine RBC Urine WBC Ur Squamous Epith Cells Urine Bacteria Ur Culture Indicated? Vol Urine Centrifuged Nasal Screen MRSA (PCR) Not detected U Opiates 300ng/mL cut Ur Oxycodone Screen Urine Methadone Screen Ur Barbiturates Screen U Tricyclic Antidepress Ur Phencyclidine Scrn Ur Amphetamines Screen U Methamphetamines Scrn Ur MDMA Scrn (Ecstasy) U Benzodiazepines Scrn Urine Cocaine Screen U Marijuana (THC) Screen Urine Specific [place] Normal Ethyl Alcohol Ur Creatinine Normal 05/06/25 05/07/25 22:28 04:17 WBC 5.3 RBC 4.53 Hgb 15.4 Hct 45.5 MCV 100.4 H MCH 33.9 MCHC 33.8 RDW 15.3 H Plt Count 44 L Neut % (Auto) 52.5 Lymph % (Auto) 28.7 [place] % (Auto) 15.6 H Eos % (Auto) 2.2 Baso % (Auto) 1.0 Neut # (Auto) 2800 Lymph # (Auto) 1500 [place] # (Auto) 800 Eos # (Auto) 100 Baso # (Auto) 100 PT INR APTT ABG Sample Site Right radial ABG pH 7.34 L ABG pCO2 42.0 ABG pO2 86 ABG HCO3 23 ABG Total CO2 22 L ABG O2 Saturation 96 ABG Base Excess -2.8 L Darci Test Positive Respiration Rate 18 O2 Delivery Device Adult ventilator Mode of Support Assist cont ventilat FiO2 % 50.0 % PEEP or CPAP 5 Sodium 138 Potassium 4.9 Chloride 106 Carbon Dioxide 21 L BUN 14 Creatinine 0.85 Estimated GFR > 60 BUN/Creatinine Ratio 16.5 Glucose 73 POC Whole Bld Glucose Calcium 8.4 Magnesium Total Bilirubin 2.9 H AST 89 H ALT 57 H Alkaline Phosphatase 85 Total Creatine Kinase Troponin I NT-Pro-B Natriuret Pep Total Protein 7.4 Albumin 4.1 Globulin 3.3 Albumin/Globulin Ratio 1.2 Lipase Urine Color Urine Appearance Urine pH Ur Specific [place] Urine Protein Urine Glucose (UA) Urine Ketones Urine Occult Blood Urine Nitrate Urine Bilirubin Urine Urobilinogen Ur Leukocyte Esterase Urine RBC Urine WBC Ur Squamous Epith Cells Urine Bacteria Ur Culture Indicated? Vol Urine Centrifuged Nasal Screen MRSA (PCR) U Opiates 300ng/mL cut Ur Oxycodone Screen Urine Methadone Screen Ur Barbiturates Screen U Tricyclic Antidepress Ur Phencyclidine Scrn Ur Amphetamines Screen U Methamphetamines Scrn Ur MDMA Scrn (Ecstasy) U Benzodiazepines Scrn Urine Cocaine Screen U Marijuana (THC) Screen Urine Specific [place] Ethyl Alcohol Ur Creatinine PFS Medical History (Updated 05/06/25 @ 22:54 by Spencer Godoy MD) Left ankle injury Social History household members: none Smoking Status: Former smoker Assessment & Plan Time-Based Coding :: [TOTAL MINUTES] spent with patient and on the chart (including review of chart, obtaining history, exam, reviewing outside data, placing orders, documenting exam and treatment plan, and counseling patient) on [DATE].
--- NOTE | 2025-05-07 09:26 | PC.NURSE ---
0930 - Per Dr Mendoza, hold Eliquis if platelets less than 50.
[2025-05-07] MEDS: PANTOPRAZOLE 40 MG VIAL IV (09:34)
[2025-05-07] MEDS: THIAMINE 200 MG in SODIUM CHLORIDE 0.9% 100 ML 408 MG IV (09:45)
[2025-05-07] MEDS: AMIODARONE 150 MG/100 ML PIGGYBACK 600 MG IV (10:03)
[2025-05-07] MEDS: AMIODARONE 360 MG/200 ML PIGGYBACK 33.33 MG IV (10:20)
--- NOTE | 2025-05-07 10:50 | PM.PN.EICU ---
Subjective Subjective IF CAMERA ACTIVATED, patient seen via real-time interactive audiovisual communication: Camera activated Consent obtained for tele-ladle patcher care: Yes Patient Location: ICU Provider location (State): Other participants/roles: RN, RT Interval history: Pt remains intubated and sedated with propfole and fentanyl, on phenobarb and librium, adding precedex and weaning off propfol as tolerated Had afib w RVR, became hypotensive with Cardizem drip, now holding, adding amio bolus and a drip Trend CMP daily on Amio Holding Eliquis fo plat <50 SAT as above, RASS goal -1 Check echo vent bundle care, SBT when mental status improves Switch PPI to H2B for thrombicytopenia Current Medications Current Medications Medications: Home Medications No Known Home Medications 01/25/20 [History Confirmed 01/25/20] Visit Medications (administered) Generic Name Dose Route Start Last Admin Trade Name Freq PRN Reason Stop Dose Admin Apixaban 5 mg 05/06/25 21:00 05/07/25 09:32 Apixaban 5 Mg Tablet PO Not Given BID LEN Chlordiazepoxide HCl 100 mg 05/06/25 18:00 05/07/25 06:53 Chlordiazepoxide 25 Mg Capsule PO 100 mg Q6H LEN Administration Chlorhexidine Gluconate 15 ml 05/07/25 00:00 05/07/25 06:53 Chlorhexidine Gluconate 15 Ml Cup PO 15 ml Q6HR LEN Administration Diltiazem HCl 125 mg/ Sodium 125 mls @ 5 mls/hr 05/06/25 11:30 05/07/25 09:01 Chloride IV 0 mg/hr TITRATE LEN 0 mls/hr Protocol Titration 5 MG/HR Sodium Chloride 1,000 mls @ 100 mls/hr 05/06/25 16:00 05/07/25 01:45 Normal Saline 0.9% IV 100 mls/hr CONT LEN Administration Propofol 1,000 mg in 100 mls @ 4.15 mls/hr 05/06/25 20:45 05/07/25 10:38 Diprivan IV 60 mcg/kg/min TITRATE LEN 49.805 mls/hr Protocol Administration 5 MCG/KG/MIN Fentanyl 1,000 mcg/ Dextrose 250 mls @ 24.211 mls/hr 05/06/25 22:30 05/07/25 06:29 IV 1.2 mcg/kg/hr TITRATE LEN 41.504 mls/hr Protocol Titration 0.7 MCG/KG/HR Thiamine HCl 200 mg/ Sodium 102 mls @ 408 mls/hr 05/07/25 09:00 05/07/25 10:39 Chloride IV Infused DAILY LEN Infusion Amiodarone HCl/Dextrose 360 mg in 200 mls @ 33.333 mls/hr 05/07/25 09:28 05/07/25 10:20 Nexterone IV 05/07/25 15:27 33.333 mls/hr NOW ONE 33.33 mls/hr Protocol Administration Lorazepam 0 mg 05/06/25 15:51 05/06/25 18:18 Lorazepam 2 Mg/Ml Inj IV 2 mg [id number] PRN Administration Alcohol Withdrawal Protocol Lorazepam 2.8 mg 05/06/25 22:19 05/07/25 05:18 Lorazepam 2 Mg/Ml Inj 0.02 mg/kg (2.8 mg) 2.8 mg IV Administration Q6HR PRN Sedation Multivitamins 1 tab 05/07/25 09:00 05/07/25 09:37 Multivitamin 1 Tablet PO Not Given DAILY LEN Ondansetron HCl 4 mg 05/06/25 15:51 05/06/25 17:43 Ondansetron 4 Mg/2 Ml Inj IV 4 mg Q6HR PRN Administration Nausea And Vomiting Pantoprazole Sodium 40 mg 05/07/25 09:00 05/07/25 09:34 Pantoprazole 40 Mg Vial IV 40 mg DAILY LEN Administration Phenobarbital 130 mg 05/06/25 22:00 05/07/25 07:01 Phenobarbital 65 Mg/Ml Vial IV 05/09/25 21:59 Not Given Q4H LEN Succinylcholine Chloride 50 mg 05/06/25 21:00 05/06/25 20:58 Succinylcholine 200 Mg/10 Ml Vial IV 50 mg STAT LEN Administration Objective Ventilator Parameters: Ventilator Settings FiO2 40 RT Vent Frequency 16 Ventilator Tidal Volume 600 Exhaled Positive End Expiratory 5 Pressure Inspiratory Phase Time 0.90 I:E Ratio 1:3.2 Patient Position HOB >= 30 degrees Labs 05/07/25 04:17 05/07/25 04:17 Labs: Laboratory Results - last 24 hr 05/06/25 05/06/25 05/06/25 11:10 13:45 13:45 WBC RBC Hgb Hct MCV MCH MCHC RDW Plt Count Neut % (Auto) Lymph % (Auto) [place] % (Auto) Eos % (Auto) Baso % (Auto) Neut # (Auto) Lymph # (Auto) [place] # (Auto) Eos # (Auto) Baso # (Auto) ABG Sample Site ABG pH ABG pCO2 ABG pO2 ABG HCO3 ABG Total CO2 ABG O2 Saturation ABG Base Excess Darci Test Respiration Rate O2 Delivery Device Mode of Support FiO2 % PEEP or CPAP Sodium Potassium Chloride Carbon Dioxide BUN Creatinine Estimated GFR BUN/Creatinine Ratio Glucose POC Whole Bld Glucose Calcium Total Bilirubin AST ALT Alkaline Phosphatase Total Protein Albumin Globulin Albumin/Globulin Ratio Urine Color Yellow Urine Appearance Clear Urine pH 6.0 Normal Ur Specific [place] <=1.005 Urine Protein Negative Urine Glucose (UA) Negative Urine Ketones Negative Urine Occult Blood Trace-intact Urine Nitrate Negative Urine Bilirubin Negative Urine Urobilinogen 0.2 Ur Leukocyte Esterase Negative Urine RBC 0-1/hpf Urine WBC 0-1/hpf Ur Squamous Epith Cells 0-1 /hpf Urine Bacteria Occasional (0-1) Ur Culture Indicated? Cult not indicated Vol Urine Centrifuged 10ml (spun) Nasal Screen MRSA (PCR) U Opiates 300ng/mL cut Negative Ur Oxycodone Screen Negative Urine Methadone Screen Negative Ur Barbiturates Screen Negative U Tricyclic Antidepress Negative Ur Phencyclidine Scrn Negative Ur Amphetamines Screen Negative U Methamphetamines Scrn Negative Ur MDMA Scrn (Ecstasy) Negative U Benzodiazepines Scrn Negative Urine Cocaine Screen Negative U Marijuana (THC) Screen Negative Urine Specific [place] Normal Ethyl Alcohol 188 H Ur Creatinine Normal 05/06/25 05/06/25 05/06/25 21:30 21:57 22:28 WBC RBC Hgb Hct MCV MCH MCHC RDW Plt Count Neut % (Auto) Lymph % (Auto) [place] % (Auto) Eos % (Auto) Baso % (Auto) Neut # (Auto) Lymph # (Auto) [place] # (Auto) Eos # (Auto) Baso # (Auto) ABG Sample Site Right radial ABG pH 7.34 L ABG pCO2 42.0 ABG pO2 86 ABG HCO3 23 ABG Total CO2 22 L ABG O2 Saturation 96 ABG Base Excess -2.8 L Darci Test Positive Respiration Rate 18 O2 Delivery Device Adult ventilator Mode of Support Assist cont ventilat FiO2 % 50.0 % PEEP or CPAP 5 Sodium Potassium Chloride Carbon Dioxide BUN Creatinine Estimated GFR BUN/Creatinine Ratio Glucose POC Whole Bld Glucose 100 H Calcium Total Bilirubin AST ALT Alkaline Phosphatase Total Protein Albumin Globulin Albumin/Globulin Ratio Urine Color Urine Appearance Urine pH Ur Specific [place] Urine Protein Urine Glucose (UA) Urine Ketones Urine Occult Blood Urine Nitrate Urine Bilirubin Urine Urobilinogen Ur Leukocyte Esterase Urine RBC Urine WBC Ur Squamous Epith Cells Urine Bacteria Ur Culture Indicated? Vol Urine Centrifuged Nasal Screen MRSA (PCR) Not detected U Opiates 300ng/mL cut Ur Oxycodone Screen Urine Methadone Screen Ur Barbiturates Screen U Tricyclic Antidepress Ur Phencyclidine Scrn Ur Amphetamines Screen U Methamphetamines Scrn Ur MDMA Scrn (Ecstasy) U Benzodiazepines Scrn Urine Cocaine Screen U Marijuana (THC) Screen Urine Specific [place] Ethyl Alcohol Ur Creatinine 05/07/25 05/07/25 04:17 08:05 WBC 5.3 RBC 4.53 Hgb 15.4 Hct 45.5 MCV 100.4 H MCH 33.9 MCHC 33.8 RDW 15.3 H Plt Count 44 L Neut % (Auto) 52.5 Lymph % (Auto) 28.7 [place] % (Auto) 15.6 H Eos % (Auto) 2.2 Baso % (Auto) 1.0 Neut # (Auto) 2800 Lymph # (Auto) 1500 [place] # (Auto) 800 Eos # (Auto) 100 Baso # (Auto) 100 ABG Sample Site ABG pH ABG pCO2 ABG pO2 ABG HCO3 ABG Total CO2 ABG O2 Saturation ABG Base Excess Darci Test Respiration Rate O2 Delivery Device Mode of Support FiO2 % PEEP or CPAP Sodium 138 Potassium 4.9 Chloride 106 Carbon Dioxide 21 L BUN 14 Creatinine 0.85 Estimated GFR > 60 BUN/Creatinine Ratio 16.5 Glucose 73 POC Whole Bld Glucose 89 Calcium 8.4 Total Bilirubin 2.9 H AST 89 H ALT 57 H Alkaline Phosphatase 85 Total Protein 7.4 Albumin 4.1 Globulin 3.3 Albumin/Globulin Ratio 1.2 Urine Color Urine Appearance Urine pH Ur Specific [place] Urine Protein Urine Glucose (UA) Urine Ketones Urine Occult Blood Urine Nitrate Urine Bilirubin Urine Urobilinogen Ur Leukocyte Esterase Urine RBC Urine WBC Ur Squamous Epith Cells Urine Bacteria Ur Culture Indicated? Vol Urine Centrifuged Nasal Screen MRSA (PCR) U Opiates 300ng/mL cut Ur Oxycodone Screen Urine Methadone Screen Ur Barbiturates Screen U Tricyclic Antidepress Ur Phencyclidine Scrn Ur Amphetamines Screen U Methamphetamines Scrn Ur MDMA Scrn (Ecstasy) U Benzodiazepines Scrn Urine Cocaine Screen U Marijuana (THC) Screen Urine Specific [place] Ethyl Alcohol Ur Creatinine Exam Vital Signs (past 8 hours): - 05/07/25 03:00 05/07/25 03:00 05/07/25 03:15 Temperature Pulse Rate 92 H Respiratory Rate 16 Blood Pressure 143/71 H 136/74 Pulse Oximetry 100 05/07/25 03:15 05/07/25 03:30 05/07/25 03:30 Temperature Pulse Rate 94 H 91 H Respiratory Rate 16 16 Blood Pressure 146/74 H Pulse Oximetry 100 100 05/07/25 03:45 05/07/25 03:45 05/07/25 04:00 Temperature Pulse Rate 94 H 102 H Respiratory Rate 16 16 Blood Pressure 142/72 H Pulse Oximetry 100 100 05/07/25 04:00 05/07/25 04:30 05/07/25 04:40 Temperature Pulse Rate 104 H 108 H Respiratory Rate 16 16 Blood Pressure 146/73 H Pulse Oximetry 100 98 05/07/25 04:40 05/07/25 04:45 05/07/25 04:45 Temperature Pulse Rate 115 H Respiratory Rate 16 Blood Pressure 155/88 H 156/98 H Pulse Oximetry 97 05/07/25 05:00 05/07/25 05:00 05/07/25 05:15 Temperature 101.5 F H Pulse Rate 115 H 112 H Respiratory Rate 16 16 Blood Pressure 169/83 H Pulse Oximetry 98 99 05/07/25 05:15 05/07/25 05:30 05/07/25 05:30 Temperature Pulse Rate 118 H Respiratory Rate 16 Blood Pressure 154/74 H 139/76 Pulse Oximetry 99 05/07/25 05:45 05/07/25 05:45 05/07/25 06:00 Temperature Pulse Rate 114 H 117 H Respiratory Rate 16 16 Blood Pressure 117/63 Pulse Oximetry 99 99 05/07/25 06:00 05/07/25 06:15 05/07/25 06:15 Temperature Pulse Rate 112 H Respiratory Rate 16 Blood Pressure 109/65 115/68 Pulse Oximetry 99 05/07/25 06:23 05/07/25 06:30 05/07/25 06:30 Temperature 99.1 F Pulse Rate 111 H Respiratory Rate 16 Blood Pressure 120/63 Pulse Oximetry 100 05/07/25 06:45 05/07/25 06:45 05/07/25 07:00 Temperature Pulse Rate 110 H 110 H Respiratory Rate 16 16 Blood Pressure 117/71 Pulse Oximetry 99 99 05/07/25 07:00 05/07/25 07:15 05/07/25 07:15 Temperature Pulse Rate 112 H Respiratory Rate 16 Blood Pressure 117/68 115/62 Pulse Oximetry 99 05/07/25 07:30 05/07/25 07:30 05/07/25 07:30 Temperature 97.8 F Pulse Rate 122 H Respiratory Rate 16 Blood Pressure 118/72 Pulse Oximetry 98 05/07/25 07:45 05/07/25 07:45 05/07/25 08:00 Temperature Pulse Rate 128 H 120 H Respiratory Rate 16 16 Blood Pressure 117/63 Pulse Oximetry 98 98 05/07/25 08:00 05/07/25 08:16 05/07/25 08:16 Temperature Pulse Rate 127 H Respiratory Rate 16 Blood Pressure 121/65 128/73 Pulse Oximetry 97 05/07/25 08:20 05/07/25 08:30 05/07/25 08:30 Temperature 97.9 F Pulse Rate 139 H Respiratory Rate 16 Blood Pressure 124/60 Pulse Oximetry 98 05/07/25 08:45 05/07/25 08:45 05/07/25 09:00 Temperature 98.2 F Pulse Rate 133 H Respiratory Rate 16 Blood Pressure 107/58 L Pulse Oximetry 97 05/07/25 09:00 05/07/25 09:00 05/07/25 09:15 Temperature Pulse Rate 127 H 130 H Respiratory Rate 16 16 Blood Pressure 82/55 L Pulse Oximetry 95 96 05/07/25 09:15 05/07/25 09:30 05/07/25 09:30 Temperature Pulse Rate 132 H Respiratory Rate 16 Blood Pressure 95/70 98/63 Pulse Oximetry 96 05/07/25 09:45 05/07/25 09:45 05/07/25 10:00 Temperature Pulse Rate 135 H 133 H Respiratory Rate 16 16 Blood Pressure 109/60 Pulse Oximetry 98 97 Oxygen Delivery Method Mechanical Ventilation Assessment & Plan Time-Based Coding :: [TOTAL MINUTES] spent with patient and on the chart (including review of chart, obtaining history, exam, reviewing outside data, placing orders, documenting exam and treatment plan, and counseling patient) on [DATE].
--- NOTE | 2025-05-07 11:11 | CM.DPNOTE ---
DCP note [employer]OTH EXAMINER MACHINE reviewed EMR per chart, pt required intubatoin due to ETOH withdrawals. per provider/RN, likely to remain intubated for another 48hrs. CM team will continue to follow closely for DCP coordination when medically appropriate. see previous CM notes for more. ALISSA Davis
[2025-05-07] MEDS: fentaNYL 1,000 MCG in DEXTROSE 5% IN WATER 230 ML 41.504 MCG IV (11:43)
[2025-05-07] MEDS: dexmedeTOMIDine in 0.9 % NaCL 400 MCG/100 ML PLAST..BAG 6.8 MCG IV (12:20)
[2025-05-07] MEDS: SODIUM CHLORIDE 0.9% 1,000 ML 1000 ML IV ×2 (13:37→17:20)
--- NOTE | 2025-05-07 14:01 | PC.NURSE ---
1335 - Patient's urine output averaging 11mL/hr since 0700 today. Dark, cola-colored urine. Dr. Rebolledo notified, increased maintenance fluid rate to 125mL/hr and ordered a 1L NS Bolus.
[2025-05-07] MEDS: SODIUM CHLORIDE 0.9% 1,000 ML 125 ML IV (18:11)
[2025-05-07] MEDS: fentaNYL 1,000 MCG in DEXTROSE 5% IN WATER 230 ML 27.669 MCG IV (19:38)
[2025-05-07] MEDS: FAMOTIDINE 20 MG/2 ML VIAL IV (20:29)
[2025-05-07] MEDS: SODIUM CHLORIDE 0.9% 1,000 ML 200 ML IV (21:16)
[2025-05-07 23:01] LABS: Add Manual Diff / Slide Review NO; Hematocrit 43.0 % (41-53); Hemoglobin 14.3 g/dL (13.5-17.5); Lymphocytes Absolute Auto 800 /uL (1100-4500); Mean Corpuscular HGB Conc 33.3 % (30-36); Mean Corpuscular Hemoglobin 33.6 PG (26-34); Mean Corpuscular Volume 101.1 fL (80-100); Platelet Count 42 X10^3/uL (150-400)
[2025-05-08] VITALS (54 sets, daily range): BP systolic 85–163; BP diastolic 56–96; PULSE 97–151; RESP 16–21; TEMP 37.3; O2SAT 98–100
--- NOTE | 2025-05-08 | PC.NURSE ---
notified Hospitalist of HR 140's. Tele MD Zhao Burger, requested central line, and gtss. Notified Liane perdomo and she called ER
--- NOTE | 2025-05-08 00:36 | DI.RAD.S_ITS ---
PROCEDURE: XR CHEST 1V INDICATIONS: PICC placement TECHNIQUE: One view of the chest was acquired. COMPARISON: [facility], CR, XR CHEST 1V, 05/06/2025, 20:41. [facility], CR, XR CHEST 1V, 05/06/2025, 9:32. FINDINGS: Surgical changes and devices: Subdiaphragmatic enteric tube. Central venous catheter overlies the inferior SVC. Endotracheal tube with tip in the superior intrathoracic trachea. Lungs and pleura: Increased right basilar consolidation. Trace or pleural effusion. Mediastinum: Unchanged cardiomediastinal silhouette. Bones and chest wall: No suspicious bony lesions. Overlying soft tissues appear unremarkable. IMPRESSION: Central venous catheter with tip overlying the inferior SVC. Increased right basilar consolidation, which may represent atelectasis versus pneumonia. Trace right pleural effusion. Dictated by: Giles Spain M.D. on 05/08/2025 at 0:56 Approved by: Giles Spain M.D. on 05/08/2025 at 0:58
--- NOTE | 2025-05-08 01:01 | PM.AN.INVM ---
Invasive Monitor Note Procedure Procedure: Central Venous Catheter Insertion Start Time: 00:08 Stop Time: 01:02 Indication: Medical Management (hypotension requiring pressor support) Timeout: 00:10 Barrier Precautions Utilized: Cap, Mask, Hand Hygiene, 2% Chlorhexidine Cutaneous Antisepsis, Sterile Gloves, Sterile Gown, Large Sterile Drape Sheet and Maintenance of Sterile Field Vessel Utilized: Internal Jugular Vein: Right Lines Catheters Utilized: 7.5 Pashto Triple Lumen Catheter Insertion Site Care: Sterile Occlusive Dressing Applied Clinical indicators suggest catheter tip resides in: Right Internal Jugular (3 ports draw, flush easily, CXR confirmation, proximal SVC) Ultrasound Ultrasound Guidance Utilized: Yes Ultrasound was used to identify the vessel. Assessed vessel was patent.: Internal Jugular Vein Ultrasound was used to visualize vascular needle entry into the: Internal Jugular Vein Limited exam reveals anatomically normal vessel with no apparent abnormal findings.: Yes Permanent ultrasound image obtained and interpretation documented.: No Complications Complications: none
[2025-05-08] MEDS: CHLORHEXIDINE GLUCONATE 15 ML CUP PO ×2 (01:10→05:33)
[2025-05-08] MEDS: AMIODARONE 150 MG/100 ML PIGGYBACK 600 MG IV (01:26)
[2025-05-08] MEDS: AMIODARONE 360 MG/200 ML PIGGYBACK IV ×2 (01:49→06:20)
[2025-05-08] MEDS: PHENYLEPHRINE 20,000 MCG in DEXTROSE 5% IN WATER 250 ML 25.5 MCG IV ×2 (02:06→11:51)
[2025-05-08] MEDS: SODIUM CHLORIDE 0.9% 1,000 ML 200 ML IV ×2 (02:46→08:46)
[2025-05-08] MEDS: fentaNYL 1,000 MCG in DEXTROSE 5% IN WATER 230 ML 27.669 MCG IV (03:56)
[2025-05-08 03:58] LABS: Allen Test for ABG Passed? Positive; Blood Gas Collection Site Right Radial; Blood Gas Mode Assist Cont Ventilat; Delivery System Adult Ventilator; HCO3 ABG 21 mmol/L (23-27); Oxygen Saturation ABG 98 % (95-100); PCO2 ABG 34.8 mmHg (35-45); PEEP 5; PO2 ABG 103 mmHg (80-100); TCO2 ABG 20 mmol/L (23-27)
--- NOTE | 2025-05-08 07:39 | PM.PN.1 ---
Subjective Subjective Date Patient Seen: 05/08/25 Interval history: Chief complaint: Atrial fibrillation rapid ventricular response and severe acute alcohol withdrawal History of present illness: 05/06: 60-year-old male well known to this institution for recurrent alcohol withdrawal and severe oral withdrawal with delirium tremens presented with increasing pain tremors and palpitations. He was brought to the emergency room where he was found to be in atrial fibrillation with a rapid ventricular response, started on IV diltiazem and apixaban. Findings in the emergency department significant for EKG showing AFib with ventricular response blood alcohol of 188 Hemogram unremarkable except platelets of 72 Total bilirubin 1.6 AST 111 ALT 68 CK for O2 troponin within reference range BNP 2 1 5 Chest x-ray showed markedly enlarged cardiac silhouette and right lower lobe pleural effusion/infiltrate Emergency room course: Patient received 390 mg of IV phenobarbital several doses of 2 mg of lorazepam 100 mg of oral chlordiazepoxide and Precedex infusion with escalation. 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 At this point it was clear that adequate treatment of his delirium tremens could not be accomplished with airway protection and management without intubation. Intubation was difficult anesthesia was consulted performed endotracheal intubation patient was started on propofol in e-ICU was consulted 05/07-05/08: Patient continued to have garments for any sedation effusion is propofol restless fentanyl by patient access representative ablation alternately requiring diltiazem with episodes of hypotension requiring multiple boluses of saline and increase infusion rates. Patient is sedated and nonresponsive Pulse 103 respirations 16 blood pressure 87/57 ABG pH 7.38 pCO2 35 PO2 103 assist control 16 with 30% FiO2 She says today for midnight shows massive cardiomegaly megaly with blunting costophrenic angle suggesting right pleural effusion Review of systems: Patient is sedated Physical exam: Sedated obese unkempt male intubated Heart sounds distant irregularly irregular rhythm Lungs sounds coarse rhonchi throughout Abdomen benign Extremities 2+ edema swelling around knees For objective laboratory EKG and imaging please see the bottom of the note: Assessment and plan: Atrial fibrillation rapid ventricular response likely related to withdrawal and alcohol cardiotoxicity Appreciate cardiology input with recommendations for diltiazem drip and apixaban CVA prophylaxis Amiodarone per patient access representative management Echocardiogram Treat alcohol withdrawal Severe alcohol withdrawal with severe symptoms while still having measurable alcohol levels We will need to be extremely aggressive in managing this historically patient has had severe withdrawal Moderate dose phenobarbital 390 mg IV loading dose and 130 mg scheduled IV q.4 hours (patient access representative is managing) Precedex infusion titrate to RA SS score of -4 Propofol fentanyl and other infusions per patient access representative management IV thiamine CVA prophylaxis covered with apixaban Code status: Full code Disposition: Admission inpatient to ICU for management Anticipate 3 or more days to manage alcohol withdrawal and atrial fibrillation Time based billin minutes were involved in the management of this patient including [id number] patient evaluation discussion with treatment team ER provider review of previous records objective findings and orders Exam Vital Signs (past 8 hours): - 05/08/25 00:46 05/08/25 00:46 05/08/25 01:00 PST Temperature Pulse Rate 148 H Respiratory Rate 21 Blood Pressure 163/66 H 146/70 H Pulse Oximetry 99 05/08/25 01:00 PST 05/08/25 01:15 PST 05/08/25 01:15 PST Temperature Pulse Rate 145 H 138 H Respiratory Rate 16 16 Blood Pressure 146/70 H 154/70 H 146/70 H Pulse Oximetry 98 99 05/08/25 01:30 PST 05/08/25 01:30 PST 05/08/25 01:30 PST Temperature Pulse Rate 151 H 138 H Respiratory Rate 16 16 Blood Pressure 153/96 H Pulse Oximetry 99 99 05/08/25 01:42 PST 05/08/25 01:42 PST 05/08/25 01:45 PST Temperature Pulse Rate 133 H Respiratory Rate 16 Blood Pressure 132/67 137/72 Pulse Oximetry 98 05/08/25 01:45 PST 05/08/25 02:00 05/08/25 02:00 Temperature Pulse Rate 130 H 135 H Respiratory Rate 16 16 Blood Pressure 123/83 Pulse Oximetry 99 99 05/08/25 02:00 05/08/25 02:15 05/08/25 02:15 Temperature Pulse Rate 130 H 123 H Respiratory Rate 16 16 Blood Pressure 98/58 L 109/77 Pulse Oximetry 99 100 05/08/25 02:30 05/08/25 02:30 05/08/25 02:45 Temperature Pulse Rate 122 H 116 H Respiratory Rate 16 16 Blood Pressure 114/72 Pulse Oximetry 100 100 05/08/25 02:45 05/08/25 03:00 05/08/25 03:00 Temperature 99.1 F Pulse Rate Respiratory Rate Blood Pressure 106/63 105/70 Pulse Oximetry 05/08/25 03:00 05/08/25 03:15 05/08/25 03:15 Temperature Pulse Rate 114 H 114 H Respiratory Rate 16 19 Blood Pressure 85/63 L Pulse Oximetry 100 100 05/08/25 03:17 05/08/25 03:17 05/08/25 03:30 Temperature Pulse Rate 114 H Respiratory Rate 16 Blood Pressure 95/63 96/69 Pulse Oximetry 99 05/08/25 03:30 05/08/25 03:45 05/08/25 03:45 Temperature Pulse Rate 111 H 108 H Respiratory Rate 16 16 Blood Pressure 93/71 Pulse Oximetry 99 100 05/08/25 04:00 05/08/25 04:00 05/08/25 04:15 Temperature Pulse Rate 107 H Respiratory Rate 16 Blood Pressure 94/70 95/63 Pulse Oximetry 99 05/08/25 04:15 05/08/25 04:30 05/08/25 04:30 Temperature Pulse Rate 110 H 105 H Respiratory Rate 16 16 Blood Pressure 103/63 Pulse Oximetry 99 99 05/08/25 04:45 05/08/25 04:45 05/08/25 05:00 Temperature Pulse Rate 103 H Respiratory Rate 16 Blood Pressure 100/66 97/64 Pulse Oximetry 99 05/08/25 05:00 05/08/25 05:15 05/08/25 05:15 Temperature Pulse Rate 105 H 106 H Respiratory Rate 16 16 Blood Pressure 97/64 93/56 L Pulse Oximetry 99 99 05/08/25 05:30 05/08/25 05:30 05/08/25 05:45 Temperature Pulse Rate 99 H 100 H Respiratory Rate 16 16 Blood Pressure 98/60 Pulse Oximetry 99 100 05/08/25 05:45 05/08/25 06:00 05/08/25 06:00 Temperature Pulse Rate 103 H Respiratory Rate 16 Blood Pressure 98/61 87/57 L Pulse Oximetry 99 Oxygen Delivery Method Mechanical Ventilation Objective Labs 05/07/25 22:44 05/07/25 04:17 Labs: Laboratory Results - last 24 hr 11/01/25 11/01/25 11/01/25 14:16 21:31 22:44 WBC 6.6 RBC 4.26 L Hgb 14.3 Hct 43.0 MCV 101.1 H MCH 33.6 MCHC 33.3 RDW 15.2 H Plt Count 42 L Neut % (Auto) 72.1 Lymph % (Auto) 12.9 L [place] % (Auto) 8.6 Eos % (Auto) 4.9 H Baso % (Auto) 1.5 Neut # (Auto) 4800 Lymph # (Auto) 800 L [place] # (Auto) 600 Eos # (Auto) 300 Baso # (Auto) 100 ABG Sample Site ABG pH ABG pCO2 ABG pO2 ABG HCO3 ABG Total CO2 ABG O2 Saturation ABG Base Excess Darci Test Respiration Rate O2 Delivery Device Mode of Support FiO2 % PEEP or CPAP POC Whole Bld Glucose 107 H 86 05/08/25 05/08/25 02:50 03:55 WBC RBC Hgb Hct MCV MCH MCHC RDW Plt Count Neut % (Auto) Lymph % (Auto) [place] % (Auto) Eos % (Auto) Baso % (Auto) Neut # (Auto) Lymph # (Auto) [place] # (Auto) Eos # (Auto) Baso # (Auto) ABG Sample Site Right radial ABG pH 7.38 ABG pCO2 34.8 L ABG pO2 103 H ABG HCO3 21 L ABG Total CO2 20 L ABG O2 Saturation 98 ABG Base Excess -3.8 L Darci Test Positive Respiration Rate 16 O2 Delivery Device Adult ventilator Mode of Support Assist cont ventilat FiO2 % 30.0 % PEEP or CPAP 5 POC Whole Bld Glucose 118 H [facility] Medical History (Updated 05/06/25 @ 22:54 by Spencer Godoy MD) Left ankle injury Social History household members: none Smoking Status: Former smoker Assessment & Plan Time-Based Coding :: [TOTAL MINUTES] spent with patient and on the chart (including review of chart, obtaining history, exam, reviewing outside data, placing orders, documenting exam and treatment plan, and counseling patient) on [DATE].
[2025-05-08 07:40] LABS: Add Manual Diff / Slide Review NO; Hematocrit 41.8 % (41-53); Hemoglobin 13.9 g/dL (13.5-17.5); Lymphocytes Absolute Auto 600 /uL (1100-4500); Mean Corpuscular HGB Conc 33.3 % (30-36); Mean Corpuscular Hemoglobin 33.6 PG (26-34); Mean Corpuscular Volume 100.8 fL (80-100); Platelet Count 50 X10^3/uL (150-400)
[2025-05-08 07:53] LABS: Alanine Aminotransferase 44 IU/L (<50); Albumin 3.3 g/dL (3.5-5.0); Albumin Globulin Ratio 1.0 (1.0-2.8); Alkaline Phosphatase 79 U/L (38-126); Blood Urea Nitrogen 22 mg/dL (9-20); Calcium 7.5 mg/dL (8.4-10.2); Carbon Dioxide 19 mmol/L (22-32); Chloride 106 mmol/L (98-107); Estimated Glomerular Filt Rate 37 mL/min (>60); Globulin 3.2 g/dL (1.7-4.1); Glucose 124 mg/dL (70-99); HEMOLYSIS 23 (0-50); Potassium 3.7 mmol/L (3.4-5.1); Sodium 134 mmol/L (137-145); Total Protein 6.5 g/dL (6.3-8.2)
[2025-05-08] MEDS: FAMOTIDINE 20 MG/2 ML VIAL IV (09:36)
[2025-05-08] MEDS: THIAMINE 200 MG in SODIUM CHLORIDE 0.9% 100 ML 408 MG IV (10:20)
--- NOTE | 2025-05-08 11:26 | PM.DS.1 ---
History of Present Illness History of Present Illness Date Patient Seen: 05/08/25 Chief complaint: can't walk . Narrative: Chief complaint: Atrial fibrillation rapid ventricular response and severe acute alcohol withdrawal History of present illness: 05/06: 60-year-old male well known to this institution for recurrent alcohol withdrawal and severe oral withdrawal with delirium tremens presented with increasing pain tremors and palpitations. He was brought to the emergency room where he was found to be in atrial fibrillation with a rapid ventricular response, started on IV diltiazem and apixaban. Findings in the emergency department significant for EKG showing AFib with ventricular response blood alcohol of 188 Hemogram unremarkable except platelets of 72 Total bilirubin 1.6 AST 111 ALT 68 CK for O2 troponin within reference range BNP 2 1 5 Emergency room course: Patient received 390 mg of IV phenobarbital several doses of 2 mg of lorazepam 100 mg of oral chlordiazepoxide and Precedex infusion with escalation. Despite administer these medications patient began with agitated delirium with hallucinosis set up and removed his cafeteria monitor and got out of the gurney standing at the edge resting against it. At this point it was clear that adequate treatment of his delirium tremens could not be accomplished with airway protection and management without intubation. Intubation was difficult anesthesia was consulted performed endotracheal intubation patient was started on propofol in e-ICU was consulted Hospital course: 05/07-05/08: Over the next 48 hours patient developed hypotension and oliguria then anuria for boluses of 1 L normal saline administered and maintenance rate increased to 200 mL an hour. Patient had multiple adjustments on his infusions but was started on phenylephrine by the ICU physician for hypotension On the morning of 05/08 the creatinine increased from 0.84-2.3 with scant urine referral was made for transfer to [facility] ICU for escalated care including dialysis which is not available at [facility] Review of systems: Patient is sedated Physical exam: Sedated obese unkempt male intubated Heart sounds distant irregularly irregular rhythm Lungs sounds coarse rhonchi throughout Abdomen benign Extremities 2+ edema swelling around knees For objective laboratory EKG and imaging please see the bottom of the note: Assessment and plan: Atrial fibrillation rapid ventricular response likely related to withdrawal and alcohol cardiotoxicity Appreciate cardiology input with recommendations for diltiazem drip platelet count dropped to 45 and anticoagulation was discontinued Amiodarone per hydraulic rock drill operator management Echocardiogram recommended but unavailable (patient has a very large cardiac silhouette) Treat alcohol withdrawal Severe alcohol withdrawal with severe symptoms while still having measurable alcohol levels We will need to be extremely aggressive in managing this historically patient has had severe withdrawal Moderate dose phenobarbital 390 mg IV loading dose and 130 mg scheduled IV q.4 hours (hydraulic rock drill operator is managing) Precedex infusion titrate to RA SS score of -4 Propofol fentanyl and other infusions per hydraulic rock drill operator management Metabolized may be accumulating and complicating S management IV thiamine Shock ATN with anuria Phenylephrine started Transfer to [facility] Code status: Full code Disposition: Transfer to ICU at [facility] Time based billin minutes were involved in the management of this patient including [id number] patient evaluation discussion with treatment team ER provider review of previous records objective findings and orders Discharge Providers Provider Date of admission: 05/06/25 15:05 Discharge Date: 05/08/25 Consults: 05/06/25 10:57 Consult to [facility] - Skin Fitter Stat Comment: Skin Fitter Consult needed for:: Homeless 05/06/25 22:19 Consult to Dietitian, Adult Routine Comment: Reason For Exam: Patient on Ventilator and NPO 05/07/25 21:56 Consult to Dietitian, Adult Routine Comment: Reason For Exam: intubated sedated Discharge provider: Jorge Rebolledo MD Exam Vital Signs (past 8 hours): - 05/08/25 03:30 05/08/25 03:30 05/08/25 03:45 Pulse Rate 111 H 108 H Respiratory Rate 16 16 Blood Pressure 96/69 Pulse Oximetry 99 100 Oxygen Delivery Method 05/08/25 03:45 05/08/25 04:00 05/08/25 04:00 Pulse Rate 107 H Respiratory Rate 16 Blood Pressure 93/71 94/70 Pulse Oximetry 99 Oxygen Delivery Method 05/08/25 04:15 05/08/25 04:15 05/08/25 04:30 Pulse Rate 110 H 105 H Respiratory Rate 16 16 Blood Pressure 95/63 Pulse Oximetry 99 99 Oxygen Delivery Method 05/08/25 04:30 05/08/25 04:45 05/08/25 04:45 Pulse Rate 103 H Respiratory Rate 16 Blood Pressure 103/63 100/66 Pulse Oximetry 99 Oxygen Delivery Method 05/08/25 05:00 05/08/25 05:00 05/08/25 05:15 Pulse Rate 105 H 106 H Respiratory Rate 16 16 Blood Pressure 97/64 97/64 Pulse Oximetry 99 99 Oxygen Delivery Method 05/08/25 05:15 05/08/25 05:30 05/08/25 05:30 Pulse Rate 99 H Respiratory Rate 16 Blood Pressure 93/56 L 98/60 Pulse Oximetry 99 Oxygen Delivery Method 05/08/25 05:45 05/08/25 05:45 05/08/25 06:00 Pulse Rate 100 H 103 H Respiratory Rate 16 16 Blood Pressure 98/61 Pulse Oximetry 100 99 Oxygen Delivery Method 05/08/25 06:00 05/08/25 06:15 05/08/25 06:15 Pulse Rate 100 H Respiratory Rate 16 Blood Pressure 87/57 L 91/66 Pulse Oximetry 100 Oxygen Delivery Method 05/08/25 06:30 05/08/25 06:30 05/08/25 06:45 Pulse Rate 103 H Respiratory Rate 16 Blood Pressure 108/58 L 117/66 Pulse Oximetry 99 Oxygen Delivery Method 05/08/25 06:45 05/08/25 07:00 05/08/25 07:00 Pulse Rate 107 H 106 H Respiratory Rate 16 16 Blood Pressure 110/64 Pulse Oximetry 100 99 Oxygen Delivery Method 05/08/25 07:00 05/08/25 07:15 05/08/25 07:15 Pulse Rate 104 H Respiratory Rate 16 Blood Pressure 110/69 Pulse Oximetry 100 Oxygen Delivery Method Mechanical Ventilation 05/08/25 07:30 05/08/25 07:30 05/08/25 07:45 Pulse Rate 104 H Respiratory Rate 16 Blood Pressure 99/56 L 100/64 Pulse Oximetry 99 Oxygen Delivery Method 05/08/25 07:45 05/08/25 08:00 05/08/25 08:00 Pulse Rate 107 H 113 H Respiratory Rate 16 16 Blood Pressure 104/76 Pulse Oximetry 100 100 Oxygen Delivery Method 05/08/25 08:15 05/08/25 08:15 05/08/25 08:30 Pulse Rate 113 H 118 H Respiratory Rate 16 16 Blood Pressure 125/72 Pulse Oximetry 100 100 Oxygen Delivery Method 05/08/25 08:30 05/08/25 08:45 05/08/25 08:45 Pulse Rate 115 H Respiratory Rate 16 Blood Pressure 140/71 138/65 Pulse Oximetry 100 Oxygen Delivery Method Oxygen Delivery Method Mechanical Ventilation Objective Labs 05/08/25 07:30 05/08/25 07:30 Labs: Laboratory Results - last 24 hr 05/07/25 05/07/25 05/07/25 14:16 21:31 22:44 WBC 6.6 RBC 4.26 L Hgb 14.3 Hct 43.0 MCV 101.1 H MCH 33.6 MCHC 33.3 RDW 15.2 H Plt Count 42 L Neut % (Auto) 72.1 Lymph % (Auto) 12.9 L Gem % (Auto) 8.6 Eos % (Auto) 4.9 H Baso % (Auto) 1.5 Neut # (Auto) 4800 Lymph # (Auto) 800 L Gem # (Auto) 600 Eos # (Auto) 300 Baso # (Auto) 100 ABG Sample Site ABG pH ABG pCO2 ABG pO2 ABG HCO3 ABG Total CO2 ABG O2 Saturation ABG Base Excess Darci Test Respiration Rate O2 Delivery Device Mode of Support FiO2 % PEEP or CPAP Sodium Potassium Chloride Carbon Dioxide BUN Creatinine Estimated GFR BUN/Creatinine Ratio Glucose POC Whole Bld Glucose 107 H 86 Calcium Total Bilirubin AST ALT Alkaline Phosphatase Total Protein Albumin Globulin Albumin/Globulin Ratio 05/08/25 05/08/25 05/08/25 02:50 03:55 07:30 WBC 6.7 RBC 4.15 L Hgb 13.9 Hct 41.8 MCV 100.8 H MCH 33.6 MCHC 33.3 RDW 15.6 H Plt Count 50 L Neut % (Auto) 75.5 H Lymph % (Auto) 9.3 L Gem % (Auto) 7.7 Eos % (Auto) 4.7 H Baso % (Auto) 2.8 H Neut # (Auto) 5100 Lymph # (Auto) 600 L Gem # (Auto) 500 Eos # (Auto) 300 Baso # (Auto) 200 H ABG Sample Site Right radial ABG pH 7.38 ABG pCO2 34.8 L ABG pO2 103 H ABG HCO3 21 L ABG Total CO2 20 L ABG O2 Saturation 98 ABG Base Excess -3.8 L Darci Test Positive Respiration Rate 16 O2 Delivery Device Adult ventilator Mode of Support Assist cont ventilat FiO2 % 30.0 % PEEP or CPAP 5 Sodium 134 L Potassium 3.7 D Chloride 106 Carbon Dioxide 19 L BUN 22 H Creatinine 2.03 H Estimated GFR 37 L BUN/Creatinine Ratio 10.8 Glucose 124 H POC Whole Bld Glucose 118 H Calcium 7.5 L Total Bilirubin 2.8 H AST 76 H ALT 44 Alkaline Phosphatase 79 Total Protein 6.5 Albumin 3.3 L Globulin 3.2 Albumin/Globulin Ratio 1.0 [facility] Medical History (Updated 05/06/25 @ 22:54 by Spencer Godoy MD) Left ankle injury Social History household members: none Smoking Status: Former smoker Discharge Plan Discharge Plan Patient Disposition: [facility] Other facility: [facility]
--- NOTE | 2025-05-08 14:27 | CM.DPC ---
DCP Hospital Transfer Per MD, pt with increased medical needs and accepted now at both and [facility] and per reptile farmer has open bed available and transport scheduled for hospital transfer to today. ALISSA Servin
--- NOTE | 2025-05-09 08:48 | PM.PROC.1 ---
Procedures Intubation Time out performed: Yes Sedative: etomidate Mg given: 30 Paralytic: rocuronium Mg given: 50 Laryngoscope: fiber optic video scope
== END 2025-05-08 12:41 | disposition short-term general hospital (02) | DRG 896 ==
LOC: ED 12:29 → AC 15:06 → ICU 21:42
PROVIDERS: Internal Medicine; Admitting Provider Internal Medicine; Emergency Provider Emergency Medicine; Referring Provider Emergency Medicine; Visit Provider Internal Medicine
DX: F10.231 Alcohol dependence with withdrawal delirium (principal); J96.00 Acute respiratory failure, unspecified whether with hypoxia or hypercapnia; N17.0 Acute kidney failure with tubular necrosis; G93.40 Encephalopathy, unspecified; Z59.02 Unsheltered homelessness; I48.91 Unspecified atrial fibrillation; Y90.6 Blood alcohol level of 120-199 mg/100 ml; D69.6 Thrombocytopenia, unspecified; I95.9 Hypotension, unspecified; R10.9 Unspecified abdominal pain; S80.02XA Contusion of left knee, initial encounter; S80.01XA Contusion of right knee, initial encounter; W19.XXXA Unspecified fall, initial encounter; Z87.891 Personal history of nicotine dependence
CPT/HCPCS: 36415; 36600; 71045; 73560; 80053; 80305; 80320; 81001; 82550; 82805; 82962; 83690; 83735; 83880; 84484; 85025; 85610; 85730; 87070; 87205; 87797; 93005; 93010; 93306; 94002; 94003; 94799; 96361; 96365; 96366; 96372; 96375; 96376; 99285; 99291; J0282; J0330; J1171; J2060; J2405; J2470; J2560; J2704; J3010; J7030; J7050; J7060